=== PATIENT | male | born 1960 | race Caucasian/White ===

== ENCOUNTER → 2020-07-31 06:57 | Outpatient (CLI) | payer MEDICARE, MEDICAID, SELFPAY ==
[2020-07-31 10:44] LABS: Absolute Lymphocyte Count 1.77 X10^3/uL (0.83-4.51); Absolute Neutrophil Count 5.1 X10^3/uL (2.0-7.7); Basophil# 0.05 X10^3/uL; Basophil% 0.6 % (0-1); Eosinophil# 0.22 X10^3/uL; Eosinophils% 2.8 % (0-5); Hematocrit 45.1 % (40-54); Hemoglobin 14.9 g/dL (13.0-16.5); Lymphocyte # 1.77 X10^3/ul (4.0); Lymphocyte % 22.7 % (19-41); Mean Corpuscular Hgb 29.4 pg (27.0-32.0); Mean Platelet Vol. 9.6 fl (6.2-12.0); Monocyte# 0.62 X10^3/uL; Monocyte% 7.9 % (0-10); NRBC Flagged by Analyzer 0 % (0-5); Neutrophil # 5.09 X10^3/uL (2.7-7.7); Neutrophil % 65.4 % (47-70); Platelet Count 332 K/mm3 (150-450); RBC Distribution Width CV 12.6 % (11.6-14.6); RBC Distribution Width SD 40.9 fl (35.1-43.9); Red Blood Count 5.07 M/mm3 (4.6-6.2); White Blood Count 7.8 K/mm3 (4.4-11.0)
[2020-07-31 11:10] LABS: Hemoglobin A1c 10.6 % (3.8-5.6)
[2020-07-31 11:18] LABS: ALB/GLOB Ratio 0.9 RATIO (0.9-2.4); AST(SGOT) 26 U/L (15-37); Alanine Aminotransfer ALT/SGPT 29 U/L (16-61); Albumin, Serum 3.6 g/dL (3.2-5.0); Alkaline Phosphatase 100 U/L (45-117); Anion Gap 6 (5-15); BUN 15 mg/dL (7-18); Calcium,Total 9.3 mg/dL (8.5-10.1); Chloride 100 mmol/L (98-107); Cholesterol 139 mg/dL (200); Creatinine, Serum 0.88 mg/dL (0.70-1.30); EST Glomerular Filtration Rate 94 mL/min (>60); Est Glom Filt Rate - Afr Amer 114 mL/min (>60); Globulin 4.2 g/dL (2.2-4.2); Glucose 266 mg/dL (74-106); High Density Lipoprotein 28 mg/dL; PSA,Total - Annual Screen 0.69 ng/mL (0.00-4.00); Protein, Total 7.8 g/dL (6.4-8.2); Sodium Level 135 mmol/L (136-145); Triglycerides 510 mg/dL
[2020-07-31 11:18] LABS: Microalbumin:Creatinine Ratio 332.1 mg/g CRE (<30 mg/g CRE)
[2020-07-31 11:24] LABS: Amphetamine Urine VISTA NEGATIVE (<1000 ng/mL); Barbiturate Urine VISTA NEGATIVE (< 200 ng/mL); Benzodiazepine Urine VISTA NEGATIVE (< 200 ng/mL); Cocaine Urine VISTA NEGATIVE (< 300 ng/mL); Ecstacy Urine VISTA NEGATIVE (< 500 ng/mL); Methadone Urine VISTA NEGATIVE (< 300 ng/mL); PCP Urine VISTA NEGATIVE (< 25 ng/mL); THC Urine VISTA NEGATIVE (< 50 ng/mL); Vista UDS pH Range 6
== END ==
PROVIDERS: PCP Internal Medicine; Visit Provider Clinical Nurse Specialist
DX: E11.9 Type 2 diabetes mellitus without complications (principal); I10 Essential (primary) hypertension; E78.2 Mixed hyperlipidemia; Z79.899 Other long term (current) drug therapy; Z12.5 Encounter for screening for malignant neoplasm of prostate
CPT/HCPCS: 36415; 80053; 80061; 80307; 82043; 82570; 83036; 84153; 85025; G0103

== ENCOUNTER → 2020-11-20 09:03 | Outpatient (CLI) | payer MEDICARE, MEDICAID, SELFPAY ==
[2020-11-20 11:18] LABS: Hemoglobin A1c 11.2 % (3.8-5.6)
[2020-11-20 11:22] LABS: ALB/GLOB Ratio 0.8 RATIO (0.9-2.4); AST(SGOT) 15 U/L (15-37); Alanine Aminotransfer ALT/SGPT 28 U/L (16-61); Albumin, Serum 3.6 g/dL (3.2-5.0); Alkaline Phosphatase 108 U/L (45-117); Anion Gap 4 (5-15); BUN 10 mg/dL (7-18); BUN/Creat Ratio 10.6 RATIO (10-20); Chloride 99 mmol/L (98-107); Cholesterol 172 mg/dL (200); Creatinine, Serum 0.94 mg/dL (0.70-1.30); EST Glomerular Filtration Rate 87 mL/min (>60); Est Glom Filt Rate - Afr Amer 106 mL/min (>60); Globulin 4.3 g/dL (2.2-4.2); Glucose 258 mg/dL (74-106); High Density Lipoprotein 27 mg/dL; Potassium 3.7 mmol/L (3.5-5.1); Protein, Total 7.9 g/dL (6.4-8.2); Sodium Level 133 mmol/L (136-145); Triglycerides 624 mg/dL
== END ==
PROVIDERS: PCP Internal Medicine; Visit Provider Internal Medicine
DX: E11.65 Type 2 diabetes mellitus with hyperglycemia (principal); Z79.899 Other long term (current) drug therapy
CPT/HCPCS: 36415; 80053; 80061; 83036

== ENCOUNTER → 2020-11-22 12:49 | Outpatient (CLI) | payer MEDICARE, SELFPAY ==
[2014-03-11 08:51] VITALS: BMI 46.3
[2020-11-22 13:42] LABS: Microalbumin,Random Urine 84.3 mg/L (NO RANGE EST.); Microalbumin:Creatinine Ratio 209.7 mg/g CRE (<30 mg/g CRE)
== END ==
PROVIDERS: PCP Internal Medicine; Referring Provider Internal Medicine; Visit Provider Internal Medicine
DX: E11.65 Type 2 diabetes mellitus with hyperglycemia (principal); Z79.899 Other long term (current) drug therapy
CPT/HCPCS: 82043; 82570

== ENCOUNTER 2020-12-09 12:10 | Inpatient (IN) | payer MEDICARE, SELFPAY ==
[2020-12-09] VITALS (14 sets, daily range): BP systolic 101–123; BP diastolic 45–74; PULSE 100–113; RESP 18–20; TEMP 37.2–37.7; O2SAT 91–99; BMI 39.9; BMI 38.5
--- NOTE | 2020-12-09 12:27 | EKG12_ITS ---
Test Reason : ILLNESS Blood Pressure : / mmHG Vent. Rate : 109 BPM Atrial Rate : 110 BPM P-R Int : 148 ms QRS Dur : 134 ms QT Int : 386 ms P-R-T Axes : 049 097 025 degrees QTc Int : 519 ms Sinus tachycardia Rightward axis Non-specific intra-ventricular conduction block Abnormal ECG Confirmed by ELSIE HILL, LIBERTY ([id number]), film editor MIRNA FARR ([id number]) on 12/11/2020 11:10:19 AM Referred By: MADISYN Confirmed By:LIBERTY ZIMMERMAN MD
--- NOTE | 2020-12-09 12:49 | ED.DCSUM_ITS ---
History of Present Illness Chief Complaint: Wound Informant: Patient Onset: Days Context: Sudden Onset Timing: Continuous Quality: Red, warm swollen scrotum with drainage Location: Scrotum and groin Current Severity: Moderate Maximum Severity: Moderate Worsened by: Cellulitis due to tinea infection Relieved by: Nothing Associated Symptoms: Difficulty urinating because of swelling Narrative: Patient is a 60-year-old male with history of diabetes who presents with acute scrotal swelling and difficulty urinating. He denies fever, chills night sweats. He does report blurred vision, polyuria, polydipsia and nocturia. His blood sugars have been elevated. He denies chest discomfort, orthopnea or PND. He denies cough, dyspnea or dyspnea on exertion. He denies abdominal pain, nausea, vomiting diarrhea. He denies black or maroon-colored stool. He denies dysuria or hematuria. He states he does not wish to be admitted. I informed him that we will obtain appropriate tests initiate treatment and if he is a candidate for home therapy will discharge to home otherwise will discuss his options. His concern is that he cares for his mother who lives with him. Prior similar symptoms: No Recent Illness/Hospitalization: No - Past Medical History (1) History of type 2 diabetes mellitus Status: Acute (2) History of hypertension Status: Acute (3) History of hypercholesterolemia Status: Acute Past Medical History - Allergies and Home Meds Allergies/Adverse Reactions: Allergies Penicillins Allergy (Verified 12/09/20 12:18) Anaphylaxis Sulfa (Sulfonamide Antibiotics) Allergy (Verified 12/09/20 12:18) Rash Primary Care Physician: Macrina uMrphy MD [Primary Care Provider] - Prior records reviewed: Yes Surgical History: noncontributory Lives: With Family Smoking Status: Current every day smoker Alcohol: None Drugs: None Review of Systems General: Reports: Malaise. Denies: Chills, Fever, Subjective, Sweats Eyes: Reports: Blurred Vision - bilaterally. Denies: Visual changes - bilaterally, Diplopia ENT: Denies: Rhinorrhea, Sore throat Cardiovascular: Denies: Chest pain, Palpitations Respiratory: Denies: Dyspnea, Cough, Sputum, Dyspnea on exertion, Orthopnea, Paroxysmal nocturnal dyspnea Gastrointestinal: Denies: Abdominal pain, Nausea, Vomiting, Diarrhea, Melena, Hematochezia Genitourinary: Denies: Dysuria, Hematuria, Frequency Musculoskeletal: Denies: Myalgias, Arthralgias, Neck pain, Back pain, Swelling, Extremity Pain Skin: Reports: Rash, Wounds Neurological: Reports: Weakness. Denies: Headache, Parasthesia Endocrine: Reports: Polyuria, Polydipsia Hematologic: Denies: Easy bruising, Easy bleeding Physical Exam Vital Signs/Narrative: Vital Signs Temp Pulse Resp BP Pulse Ox 12/09/20 12:46 112 H 18 102/70 96 12/09/20 12:16 99.9 F H 108 H 20 H 101/67 96 12/09/20 12:14 99.9 F H 106 H 20 H 98 Inital Vital Signs reviewed: Yes General: Well nourished, Well developed, Obese, Unkempt, No Acute Distress Head: Normocephalic, Atraumatic Eyes: Perrl, EOMI, Pale conjunctiva - Conjunctival is slightly pale minimally pink. Negative for: Scleral icterus ENT: No rhinorrhea, TM's clear, Dry mucous membranes Neck: Supple, No lymphadenopathy, No JVD Cardiovascular: Regular rhythm, No murmurs, Normal S1, Normal S2, Tachycardia Respiratory: No distress, CTA bilaterally, Chest nontender Abdomen: Soft, Nontender, Nondistended, Normal bowel sounds Rectal: Deferred : - - Unable to visualize penis because of excessive scrotal swelling due to cellulitis. There are small pustules noted on the posterior side of the scrotum. There is evidence of a yeast infection. There is shotty inguinal nodes noted. Back: Nontender, Normal Inspection Extremities: Nontender, Edema. Negative for: No edema Skin: No Trauma, Pallor, Rash. Negative for: Normal color, No rash, Cyanosis, Diaphoresis, Jaundice Neurological: Alert, Oriented x3, Cranial nerves II-XII grossly intact, Normal Strength, Normal Sensation Psychological: Normal affect Diagnostic/Tx/Re-eval Laboratory Results 12/09/20 12/09/20 12/09/20 12:35 12:35 12:35 WBC 15.0 H RBC 4.66 Hgb 13.3 Hct 40.2 MCV 86.3 MCH 28.5 MCHC 33.1 RDW Std Deviation 40.2 RDW Coeff of Kyle 12.9 Plt Count 378 MPV 9.5 Immature Gran % (Auto) 1.500 H Neut % (Auto) 87.5 H Lymph % (Auto) 4.4 L [place] % (Auto) 6.0 Eos % (Auto) 0.1 Baso % (Auto) 0.5 Absolute Neuts (auto) 13.2 H Absolute Lymphs (auto) 0.66 L Nucleated RBC % 0 PT 14.3 INR 1.2 APTT 24.2 Sodium 127 L Potassium 3.2 L Chloride 89 L Carbon Dioxide 27.0 Anion Gap 11 BUN 19 H Creatinine 1.07 Estim Creat Clear Calc 75.25 Est GFR (MDRD) Af Amer 91 Est GFR (MDRD) Non-Af 75 BUN/Creatinine Ratio 17.8 Glucose 301 H Lactic Acid Calcium 9.4 Total Bilirubin 0.70 AST 53 H ALT 32 Alkaline Phosphatase 130 H Total Protein 7.9 Albumin 2.4 L Globulin 5.5 H Albumin/Globulin Ratio 0.4 L 12/09/20 12/09/20 12:35 12:35 WBC RBC Hgb Hct MCV MCH MCHC RDW Std Deviation RDW Coeff of Kyle Plt Count MPV Immature Gran % (Auto) Neut % (Auto) Lymph % (Auto) [place] % (Auto) Eos % (Auto) Baso % (Auto) Absolute Neuts (auto) Absolute Lymphs (auto) Nucleated RBC % PT INR APTT Sodium Potassium Chloride Carbon Dioxide Anion Gap BUN Creatinine Estim Creat Clear Calc Est GFR (MDRD) Af Amer Est GFR (MDRD) Non-Af BUN/Creatinine Ratio Glucose Lactic Acid Cancelled 2.2 H* Calcium Total Bilirubin AST ALT Alkaline Phosphatase Total Protein Albumin Globulin Albumin/Globulin Ratio Patient's lab indicate he has severe sepsis due to cellulitis of his scrotum. Hospitalist has been paged for admission. - EKG Initial EKG Interpretation: Sinus Tachycardia - Sinus tachycardia with a ventricular rate of 109. NE interval is 148 ms. QRS duration is prolonged at 134 ms and QRS reveals a nonspecific intraventricular conduction delay. The axis to the right. NE interval is 386 ms. - Medical Decision Making Has cellulitis due to tinea infection. Suspect this is due to his elevated bl ood sugar. Sepsis work-up was undertaken. He was treated with IV antibiotics. - Critical Care Time Critical care time (excluding procedures): 30-74 minutes - Time 34 minutes. This includes obtaining history, physical, discussion regarding necessity for hospitalization, interpretation of lab results, initiation of therapy,, Discussing w/Patient &/or Family/Nursing Home Physician, Discussing w/Consultants, Arranging Admission or Transfer ED Disposition - Plan for ED Patient: Disposition: Acute Care Hospital [facility] Diagnosis: Severe sepsis, Cellulitis of scrotum, Sinus tachycardia by electrocardiogram, Hyponatremia, Hypokalemia, Hyperglycemia due to type 2 diabetes mellitus Referrals: Macrina Murphy MD [Primary Care Provider] -
[2020-12-09 13:02] LABS: Absolute Lymphocyte Count 0.66 X10^3/uL (0.83-4.51); Absolute Neutrophil Count 13.2 X10^3/uL (2.0-7.7); Basophil# 0.07 X10^3/uL; Basophil% 0.5 % (0-1); Eosinophil# 0.01 X10^3/uL; Eosinophils% 0.1 % (0-5); Hematocrit 40.2 % (40-54); Hemoglobin 13.3 g/dL (13.0-16.5); Lymphocyte # 0.66 X10^3/ul (4.0); Lymphocyte % 4.4 % (19-41); Mean Corp Hgb Conc 33.1 g/dL (32-36); Mean Corpuscular Hgb 28.5 pg (27.0-32.0); Mean Corpuscular Volume 86.3 fL (80-94); Mean Platelet Vol. 9.5 fl (6.2-12.0); NRBC Flagged by Analyzer 0 % (0-5); Neutrophil # 13.16 X10^3/uL (2.7-7.7); Neutrophil % 87.5 % (47-70); Platelet Count 378 K/mm3 (150-450); RBC Distribution Width CV 12.9 % (11.6-14.6); RBC Distribution Width SD 40.2 fl (35.1-43.9); Red Blood Count 4.66 M/mm3 (4.6-6.2)
[2020-12-09] MEDS: levoFLOXacin IV 750 MG/150 ML BAG 100 MG IV (13:05)
[2020-12-09] MEDS: 0.9% Normal Saline 1,000 ML 250 ML IV ×2 (13:05→22:17)
[2020-12-09 13:13] LABS: International Normalized Ratio 1.2; Prothrombin Time (Protime)PT. 14.3 SECONDS (11.7-14.9)
[2020-12-09 13:14] LABS: Partial Thromboplast Time 24.2 Seconds (24.1-36.2)
[2020-12-09 13:27] LABS: ALB/GLOB Ratio 0.4 RATIO (0.9-2.4); AST(SGOT) 53 U/L (15-37); Alanine Aminotransfer ALT/SGPT 32 U/L (16-61); Albumin, Serum 2.4 g/dL (3.2-5.0); Alkaline Phosphatase 130 U/L (45-117); Anion Gap 11 (5-15); BUN 19 mg/dL (7-18); BUN/Creat Ratio 17.8 RATIO (10-20); Calcium,Total 9.4 mg/dL (8.5-10.1); Chloride 89 mmol/L (98-107); Creatinine, Serum 1.07 mg/dL (0.70-1.30); EST Glomerular Filtration Rate 75 mL/min (>60); Est Glom Filt Rate - Afr Amer 91 mL/min (>60); Estimated Creatinine Clearance 75.25 ml/min; Globulin 5.5 g/dL (2.2-4.2); Glucose 301 mg/dL (74-106); Potassium 3.2 mmol/L (3.5-5.1); Protein, Total 7.9 g/dL (6.4-8.2); Sodium Level 127 mmol/L (136-145)
[2020-12-09 13:45] LABS: Lactic Acid 2.2 mmol/L (0.4-1.9)
--- NOTE | 2020-12-09 14:59 | HP.PCM_ITS ---
Problem List (1) Cellulitis of scrotum Status: Acute (2) Severe sepsis Status: Acute (3) Hyponatremia Status: Acute (4) History of hypercholesterolemia Status: Chronic (5) History of hypertension Status: Chronic (6) History of type 2 diabetes mellitus Status: Chronic History of Present Illness Date of Admission: 12/09/20 Chief Complaint: scrotal swelling The patient is a 60 year old M with pmhx of Dmt2, HTN, HLD, obesity, nicotine abuse (1/2 ppd smoker) who presents to the ER with scrotal swelling. He states this started 2 days ago and that he had no issues prior to that. He reports his scrotum has swollen to the size of a grapefruit. He has some pain, and a great deal of redness. He denies fevers or chills. He has no cough/sob, no nausea/vomiting/abdominal pain. He reports that he has never had a skin infection before. He reports that he has had no trauma to the area. He reports that the redness and swelling only involves the scrotum and not anywhere else. He has not been on any antibiotics as an outpatient. In the ER he was found to have evidence of sepsis and significant swelling to the scrotum. [] Past Medical History Past Medical History (Chronic Problems): Chronic Problems History of type 2 diabetes mellitus (Chronic) History of hypertension (Chronic) History of hypercholesterolemia (Chronic) Allergies Penicillins Allergy (Verified 12/09/20 12:18) Anaphylaxis Sulfa (Sulfonamide Antibiotics) Allergy (Verified 12/09/20 12:18) Rash Home Medications: Ambulatory Orders Medication Instructions Recorded Dulaglutide [Trulicity] 0.75 mg SQ QWEEK 12/09/20 Hydrocodone/Acetaminophen 1 tab PO QHS 12/09/20 [Hydrocodone-Acetamin 5-325 mg] Ibuprofen 600 mg PO DAILY PRN PRN 12/09/20 Lisinopril [Prinivil] 10 mg PO DAILY 12/09/20 Meloxicam [Mobic] 15 mg PO DAILY 12/09/20 Metformin HCl 2,000 mg PO DAILY 12/09/20 Simvastatin 40 mg PO QHS 12/09/20 Surgical History: tonsillectomy Psychiatric History: Depression Lives: With Family Smoking Status: Current every day smoker Tobacco Use: Cigarettes - 1/2 ppd Alcohol: None Drugs: None - *Family History Maternal History Items: Cancer - lung Paternal History Items: Cancer - lung and kidney Review of Systems Constitutional: Denies: Chills, Fever, Weight Change HEENT: Denies: Head Aches, Sinus Congestion, Sinus Drainage Cardiovascular: Denies: Chest Pain, Chest Pressure, Chest Tightness, Light Headedness, Palpitations Respiratory: Denies: Cough, Shortness of Breath, Shortness of breath at rest, Sputum production Gastrointestinal: Denies: Abdominal Pain, Diarrhea, Nausea, Vomiting Genitourinary: Denies: Dysuria, Hesitancy, Urgency Musculoskeletal: Reports: Joint Tenderness - shoulder, hip, knee pain. Denies: Joint Pain, Muscle pain Skin: Reports: Skin Changes - scrotal edema, erythema, pain. Denies: Lesions, Rash, Wounds Neurological: Denies: Numbness, Tingling, Focal weakness Psychiatric: Denies: Anxiety, Depression, Homicidal Ideations, Suicidal Ideations Hematologic/ Lymphatic: Denies: Easy Bruising, Easy Bleeding VTE Information - Inpt Only VTE Present on Admission: No VTE Mechan Device Prophylaxis: None VTE Pharm Prophylaxis ordered?: Yes Patient Problems: Active and Suspected Problems Severe sepsis (Acute) Cellulitis of scrotum (Acute) Sinus tachycardia by electrocardiogram (Acute) Hyponatremia (Acute) Hypokalemia (Acute) Hyperglycemia due to type 2 diabetes mellitus (Acute) - Physical Exam Vitals/I&O's: Vital Signs Temp Pulse Resp BP Pulse Ox 99 F 113 H 18 117/73 99 12/09/20 14:46 12/09/20 14:46 12/09/20 14:46 12/09/20 14:46 12/09/20 14:46 Oxygen Delivery Method Room Air Weight: 270 lb 8.115 oz Body Mass Index (BMI) 39.9 Finger Stick Blood Glucose 115 Intake and Output for Last 24 Hours 12/07/20 12/08/20 12/09/20 23:59 23:59 23:59 Intake Total 150 / 150 Balance 150 / 150 General: Alert, Oriented x3, Cooperative HEENT: Atraumatic, PERRLA, EOMI, Normocephalic Neck: Supple, No JVD, Negative Carotid Bruits Lungs: Clear to auscultation, Normal air movement Cardiovascular: Regular rate, No murmurs Abdomen: Bowel Sounds Present, Soft, Non Tender, Obese Extremities: No edema, Capillary Refill Less than 3 Seconds Skin: No rashes, No breakdown, - - scrotum is swollen, erythematous, painful to touch. the inguinal folds have erythema c/w yeast infection Musculoskeletal: No Tenderness to Palpation of Joints or Extremities Neurological: Cranial nerves II-XII grossly intact Psych/Mental Status: Normal Affect, Appropriate, Alert and oriented to time, place, person, mood and affect Laboratory Results 12/09/20 12:35: PT 14.3, INR 1.2, APTT 24.2 12/09/20 12:35: WBC 15.0 H, RBC 4.66, Hgb 13.3, Hct 40.2, MCV 86.3, MCH 28.5, MCHC 33.1, RDW Std Deviation 40.2, RDW Coeff of Kyle 12.9, Plt Count 378, MPV 9.5, Immature Gran % (Auto) 1.500 H, Neut % (Auto) 87.5 H, Lymph % (Auto) 4.4 L, [place] % (Auto) 6.0, Eos % (Auto) 0.1, Baso % (Auto) 0.5, Absolute Neuts (auto) 13.2 H, Absolute Lymphs (auto) 0.66 L, Nucleated RBC % 0 12/09/20 12:35: Sodium 127 L, Potassium 3.2 L, Chloride 89 L, Carbon Dioxide 27.0, Anion Gap 11, BUN 19 H, Creatinine 1.07, Estim Creat Clear Calc 75.25, Est GFR (MDRD) Af Amer 91, Est GFR (MDRD) Non-Af 75, BUN/Creatinine Ratio 17.8, Glucose 301 H, Calcium 9.4, Total Bilirubin 0.70, AST 53 H, ALT 32, Alkaline Phosphatase 130 H, Total Protein 7.9, Albumin 2.4 L, Globulin 5.5 H, Albumin/Globulin Ratio 0.4 L 12/09/20 12:35: Lactic Acid Cancelled 12/09/20 12:35: Lactic Acid 2.2 H* Current Medications Sodium Chloride () 1,000 mls @ 250 mls/hr IV .Q4H KIRTI Last Admin: 12/09/20 13:05 Dose: 250 mls/hr Documented by: Vancomycin HCl 2,000 mg/ (Sodium Chloride) 540 mls @ 250 mls/hr IV X1 ONE Stop: 12/09/20 15:09 Assessment/Plan All Active Problems Severe sepsis (Acute) Cellulitis of scrotum (Acute) Sinus tachycardia by electrocardiogram (Acute) Hyponatremia (Acute) Hypokalemia (Acute) Hyperglycemia due to type 2 diabetes mellitus (Acute) 1. Acute severe sepsis 2/2 acute cellulitis of the scrotum - this appears well localized at this time with no evidence of spread to the surrounding tissues. At this point I am not concern that there is necrotizing fascitis. No open areas or drainage. He has mild pain to the touch worse with moving of the scrotum. He has evidence of severe sepsis including leukocytosis, latate 2.2, pulse >90. Left shift present. Pcn has anaphylaxis to PCN. He was started on vanco and l evaquin in the ER. Will treat meropenem and vancomycin 2. Hyponatremia - probably a combination of factors including sepsis, elevated glucose. Pt will be placed on normal saline. Recheck in AM. Replace K+. 2. DMt2 - poorly controlled. pt says his last a1c was 11.2. Orals will be held and he will be placed on SSI 3. HTN - stable 4. HLD - statin 5. Nicotine abuse - 1/2 ppd smoker. declines patch at this time. This will complicate his wound healing process. DVT ppx: lovenox DC planning: pt lives alone independently with mother whom he cares for. Likely will go home with no needs. This patient was seen by Mario Kendrick PA-C under the supervision of Dr. Agudelo.
--- NOTE | 2020-12-09 16:04 | PCM.RX.CS ---
<Yan Ojeda - Last Filed: 12/09/20 16:04> Consult Pharmacy has been consulted to manage selected antiobiotic: Vancomycin Type of Consult: New start Prior Doses of Antibiotics Received/Current Regimen: Medications Discontinued Medications Vancomycin HCl 2,000 mg/ (Sodium Chloride) 540 mls @ 250 mls/hr IV X1 ONE Stop: 12/09/20 15:09 Last Admin: 12/09/20 15:07 Dose: 250 mls/hr Documented by: Labs: Sodium 127 mmol/L (136-145) L 12/09/20 12:35 Potassium 3.2 mmol/L (3.5-5.1) L 12/09/20 12:35 Chloride 89 mmol/L (98-107) L 12/09/20 12:35 Carbon Dioxide 27.0 mmol/L (21.0-32.0) 12/09/20 12:35 Anion Gap 11 (5-15) 12/09/20 12:35 BUN 19 mg/dL (7-18) H 12/09/20 12:35 Creatinine 1.07 mg/dL (0.70-1.30) 12/09/20 12:35 Est GFR (MDRD) Af Amer 91 mL/min (>60) 12/09/20 12:35 Est GFR (MDRD) Non-Af 75 mL/min (>60) 12/09/20 12:35 BUN/Creatinine Ratio 17.8 RATIO (10-20) 12/09/20 12:35 Glucose 301 mg/dL (74-106) H 12/09/20 12:35 Weight used for dosin lb 2.327 oz Estimated Creatinine Clearance: 75 mL/min Goal Trough: 15-20 mcg/mL Pharmacy Plan for Drug Dosinmg given in ED, 1750mg IV q12h with trough prior to 4th dose per policy. Pharmacy Service will continue to monitor and adjust dosing as required. Follow-Up Labs: Trough Vancomycin - 12/11 @ 0230 <Norberto Edmonds - Last Filed: 12/10/20 14:48> Consult Labs: Sodium 130 mmol/L (136-145) L 12/10/20 09:30 Potassium 3.3 mmol/L (3.5-5.1) L 12/10/20 09:30 Chloride 96 mmol/L (98-107) L 12/10/20 09:30 Carbon Dioxide 27.0 mmol/L (21.0-32.0) 12/10/20 09:30 Anion Gap 7 (5-15) 12/10/20 09:30 BUN 13 mg/dL (7-18) 12/10/20 09:30 Creatinine 0.84 mg/dL (0.70-1.30) 12/10/20 09:30 Est GFR (MDRD) Af Amer 121 mL/min (>60) 12/10/20 09:30 Est GFR (MDRD) Non-Af 100 mL/min (>60) 12/10/20 09:30 BUN/Creatinine Ratio 15.6 RATIO (10-20) 12/10/20 09:30 Glucose 233 mg/dL (74-106) H 12/10/20 09:30 Pharmacy Plan for Drug Dosing: Pharmacy Service will continue to monitor and adjust dosing as required.
[2020-12-09] MEDS: oxyCODONE 5 MG Tablet 10 MG PO (16:08)
[2020-12-09 16:11] LABS: Bedside Glucose 284 mg/dL (70-110)
[2020-12-09] MEDS: Insulin Lispro 100 UNIT/ML INSULN.PEN SC ×2 (16:32→22:40)
[2020-12-09 17:44] LABS: Reflex Lactate? Y
[2020-12-09 18:43] LABS: Lactic Acid 1.6 mmol/L (0.4-1.9)
[2020-12-09 22:05] LABS: Bedside Glucose 257 mg/dL (70-110)
[2020-12-09] MEDS: Atorvastatin Calcium 20 MG Tablet PO (22:22)
[2020-12-09] MEDS: HYDROcodone Bitartrate/Apap 5/325 Tablet PO (22:22)
[2020-12-09] MEDS: Heparin Injection (Vial) 5,000 UNIT/ML VIAL 5000 UNIT SC (22:24)
[2020-12-09] MEDS: Nystatin Ointment 1 APPLIC TOPICAL (22:42)
[2020-12-10 00:50] VITALS: BP 114/63; PULSE 92; RESP 20; TEMP 36.8; O2SAT 92
[2020-12-10] MEDS: 0.9% Normal Saline 1,000 ML 250 ML IV ×3 (01:59→08:11)
[2020-12-10 03:29] VITALS: PULSE 88
[2020-12-10 06:16] VITALS: BP 115/59; PULSE 87; RESP 18; TEMP 36.7; O2SAT 92
[2020-12-10 07:00] VITALS: PULSE 85
[2020-12-10 07:35] LABS: Bedside Glucose 274 mg/dL (70-110)
[2020-12-10 08:04] VITALS: BP 112/55; PULSE 89; RESP 18; TEMP 36.4; O2SAT 94
[2020-12-10] MEDS: Insulin Lispro 100 UNIT/ML INSULN.PEN SC (08:08)
[2020-12-10] MEDS: metFORMIN HCl 500 MG Tablet 2000 MG PO (08:12)
[2020-12-10] MEDS: Meloxicam 15 MG Tablet PO (08:13)
[2020-12-10] MEDS: Lisinopril 10 MG Tablet PO (08:13)
[2020-12-10] MEDS: Heparin Injection (Vial) 5,000 UNIT/ML VIAL 5000 UNIT SC (08:13)
[2020-12-10] MEDS: Nystatin Ointment 1 APPLIC TOPICAL (08:13)
--- NOTE | 2020-12-10 09:50 | CT_ITS ---
We are attempting to reach an attending provider to discuss findings. An addendum with communication details will be sent when the communication is complete. STUDY: CT PELVIS WITHOUT CONTRAST REASON FOR EXAM: Male, 60 years old. SCROTAL EDEMA X 3 DAYS. SEPSIS RADIATION DOSAGE (If Supplied By Facility): CTDIvol = ( 28.21 ) mGy, DLP = ( 1561.03 ) mGycm TECHNIQUE: Transaxial imaging of the pelvis was performed with oral contrast, and without intravenous administration of contrast material. Individualized dose optimization techniques were used for this CT. COMPARISON: None. FINDINGS: There is evidence of diffuse subcutaneous edema with evidence of gas within the soft tissues from the level of the right groin down to the perineum worse on the right side. This is in keeping with a MARILUZ gangrene. There is also evidence of bilateral hydroceles. Diffuse thickening of the scrotal wall. Distended urinary bladder. Central prostatic calcification. There is evidence of a bilateral enlarged inguinal lymph nodes more prominent on the right side. 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 Electronically Signed: Raleigh Alatorre MD at 10:31 EST , Service support ,
[2020-12-10 10:01] LABS: Hematocrit 34.2 % (40-54); Hemoglobin 11.2 g/dL (13.0-16.5); Mean Corp Hgb Conc 32.7 g/dL (32-36); Mean Corpuscular Hgb 28.4 pg (27.0-32.0); Mean Corpuscular Volume 86.6 fL (80-94); Mean Platelet Vol. 8.9 fl (6.2-12.0); POSITIVE COUNT YES; POSITIVE MORPHOLOGY YES; Platelet Count 333 K/mm3 (150-450); RBC Distribution Width SD 41.1 fl (35.1-43.9); Red Blood Count 3.95 M/mm3 (4.6-6.2); White Blood Count 13.3 K/mm3 (4.4-11.0)
[2020-12-10 10:04] LABS: Differential Indicated MANUAL DIFF
--- NOTE | 2020-12-10 10:45 | CASEMGMT ---
According to the [facility] website, the following are in-network tertiary facilities: [facility], [facility], [facility], [facility], [facility], [facility], [facility], and . Jelani COLON CM
[2020-12-10 10:49] LABS: Anion Gap 7 (5-15); BUN 13 mg/dL (7-18); BUN/Creat Ratio 15.6 RATIO (10-20); Calcium,Total 7.7 mg/dL (8.5-10.1); Chloride 96 mmol/L (98-107); Creatinine, Serum 0.84 mg/dL (0.70-1.30); EST Glomerular Filtration Rate 100 mL/min (>60); Est Glom Filt Rate - Afr Amer 121 mL/min (>60); Estimated Creatinine Clearance 95.86 ml/min; Glucose 233 mg/dL (74-106); Potassium 3.3 mmol/L (3.5-5.1); Sodium Level 130 mmol/L (136-145)
[2020-12-10 10:55] LABS: Metamyelocyte 1 % (0-1); Myelocyte 1 (0-0); Neutrophil-Segmented 80 % (47-70); Total Cells Counted 100 (MANUAL DIFF)
[2020-12-10 10:56] LABS: Eosinophil 3 % (0-5); Lymphocyte 12 % (19-41); Monocyte 2 % (0-10); Platelet Estimate ADEQUATE (ADEQ); Promyelocyte 1 (0-0); Red Cell Morphology NORM C+C NORMAL (NORM C&C)
[2020-12-10 10:57] LABS: Absolute Neutrophil Count 10.6 X10^3/uL (2.0-7.7)
--- NOTE | 2020-12-10 14:00 | PCM.DC.SUM ---
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 Operations: None Procedures: None Summary of Care Provided: Hospital Course: The patient is a 60 year old M with pmhx of DM t2 last a1c reportedly 11.2, also HTN, HLD, who presented to the ER with scrotal swelling. This began two days prior. He was found to be septic with elevated lactate, leukocytosis, pulse >90, temp 99.9. His scrotum was erythematous and swollen with tenderness to palpations, no open areas or drainage. At the time it appeared well localized, he was given IV vanc and meropenem and admitted for cellulitis. He had no improvement overnight. Infectious disease was consulted. CT pelvis was obtained and this showed changes consistent with Fourniers Gangrene, significant gas present in the scrotum extending into the perineum and bilateral hydroceles. IV clindamycin was started. We made immediate referral for transfer to a tertiary center. He was accepted by a surgeon, Dr. Montilla at [facility] and was transferred in stable condition. This patient was seen by Mario Kendrick PA-C under the supervision of Dr. Edmonds. [] Patient Problems: Active and Suspected Problems Severe sepsis (Acute) Cellulitis of scrotum (Acute) Sinus tachycardia by electrocardiogram (Acute) Hyponatremia (Acute) Hypokalemia (Acute) Hyperglycemia due to type 2 diabetes mellitus (Acute) - Physical Exam Vitals/I&O's: Vital Signs Temp Pulse Resp BP Pulse Ox 97.6 F L 89 18 112/55 L 94 12/10/20 08:04 12/10/20 08:04 12/10/20 08:04 12/10/20 08:04 12/10/20 08:04 Oxygen Delivery Method Room Air Weight: 261 lb 0.437 oz Body Mass Index (BMI) 38.5 Finger Stick Blood Glucose 115 Intake and Output for Last 24 Hours 12/08/20 12/09/20 12/10/20 23:59 23:59 23:59 Intake Total 2170.0 / 2170.0 4725.43 / 4725.43 Balance 2170.0 / 2170.0 4725.43 / 4725.43 General: Alert, Oriented x3, Cooperative HEENT: Atraumatic, PERRLA, EOMI, Normocephalic Neck: Supple, No JVD, Negative Carotid Bruits Lungs: Clear to auscultation, Normal air movement Cardiovascular: Regular rate, No murmurs Abdomen: Bowel Sounds Present, Soft, Non Tender Extremities: No edema, Capillary Refill Less than 3 Seconds Skin: No rashes, No breakdown Musculoskeletal: No Tenderness to Palpation of Joints or Extremities Neurological: Cranial nerves II-XII grossly intact Psych/Mental Status: Normal Affect, Appropriate, Alert and oriented to time, place, person, mood and affect Laboratory Results 12/09/20 16:04: POC Glucose 284 H 12/09/20 18:03: Lactic Acid 1.6 12/09/20 22:02: POC Glucose 257 H 12/10/20 07:30: POC Glucose 274 H 12/10/20 09:30: WBC 13.3 H, RBC 3.95 L, Hgb 11.2 L, Hct 34.2 L, MCV 86.6, MCH 28.4, MCHC 32.7, RDW Std Deviation 41.1, RDW Coeff of Kyle 13.0, Plt Count 333, MPV 8.9, Neut % (Auto) Not Reportable, Absolute Neuts (auto) 10.6 H, Absolute Lymphs (auto) 1.60, Total Counted 100, Neutrophils % (Manual) 80 H, Lymphocytes % (Manual) 12 L, Monocytes % (Manual) 2, Eosinophils % (Manual) 3, Metamyelocytes % 1, Myelocytes % 1 H, Promyelocytes % 1 H, Diff Path Review May foll, Platelet Estimate ADEQUATE, RBC Morphology NORM C+C 12/10/20 09:30: Sodium 130 L, Potassium 3.3 L, Chloride 96 L, Carbon Dioxide 27.0, Anion Gap 7, BUN 13, Creatinine 0.84, Estim Creat Clear Calc 95.86, Est GFR (MDRD) Af Amer 121, Est GFR (MDRD) Non-Af 100, BUN/Creatinine Ratio 15.6, Glucose 233 H, Calcium 7.7 L Home Medications: Medications to take at Discharge Dulaglutide [Trulicity] 0.75 mg SQ QWEEK 12/09/20 Hydrocodone/Acetaminophen [Hydrocodone-Acetamin 5-325 mg] 1 tab PO QHS 12/09/20 Ibuprofen 600 mg PO DAILY PRN PRN 12/09/20 Lisinopril [Prinivil] 10 mg PO DAILY 12/09/20 Meloxicam [Mobic] 15 mg PO DAILY 12/09/20 Metformin HCl 2,000 mg PO DAILY 12/09/20 Simvastatin 40 mg PO QHS 12/09/20 Primary Care Physician: Macrina Murphy MD [Primary Care Provider] - Disposition: Acute care Hospital Minutes spent on discharge:: 40 Patient Condition:: Stable Medical Necessity - Tobacco Use Smoking Status: Current every day smoker Tobacco Use: Cigarettes Meaningful Use Info Meaningful Use Diagnoses (Choose all that apply): None applicable <Norberto Edmonds - Last Filed: 12/10/20 15:03> Discharge Date and Diagnosis - Primary Discharge Diagnosis Acute Problems: Active Problems Severe sepsis (Acute) Cellulitis of scrotum (Acute) Sinus tachycardia by electrocardiogram (Acute) Hyponatremia (Acute) Hypokalemia (Acute) Hyperglycemia due to type 2 diabetes mellitus (Acute) - Secondary Discharge Diagnosis Chronic Problems: Chronic Problems History of type 2 diabetes mellitus (Chronic) History of hypertension (Chronic) History of hypercholesterolemia (Chronic) Hospital Course and Treatment Imaging Results: 12/10/20 09:50 CT Pel [Pelvis without IV Contrast] [CT] Stat Summary of Care Provided: This patient was seen in conjunction with Mario TUCKRE. I have independently interviewed and examined the patient and reviewed pertinent history, examination findings, laboratory and plan of management. I have reviewed the note and agree with the documented findings with the few additional points. In brief, patient is admitted for with history of type 2 diabetes mellitus was admitted with scrotal swelling. Pain, swelling started about 3 days ago on weekend, past Wednesday. Lactic acid was 2.2 with leukocytosis with left shift neutrophil 87.5%. Patient also hyponatremic, hypokalemic. Glucose was 301. Patient was admitted in PCU. I saw the patient along with ID Dr. Belle and on exam seems deep tissue infection?necrotizing fasciitis. CT pelvis was done. CT pelvis individually reviewed and shows gas in the scrotal region involving the right inguinal region extending down to the right perineum with the scrotal thickening and bilateral hydroceles. Patient was given IV clindamycin along with vancomycin. Patient was immediately transferred to [facility]. Accepting surgeon Dr. Montilla at [facility] I have discussed my assessment with Mario TUCKER and orders have been reviewed. Total time of the visit including total time spent in counseling or coordination of care, (more than 50% of the total time, spent in obtaining medical information from nurses and other ancillary care providers,explaining to the patient about labs, imaging, diagnosis and management), discussion with senior information security consultant, review of labs and imaging, discussion with bereavement coordinator is 30 minutes. [] Clinical Impression(s) from Imaging Studies Pelvis CT 12/10/20 09:50 IMPRESSION: Findings in keeping with MARILUZ''s gangrene involving the right inguinal region extending down into the right perineum with scrotal thickening and bilateral hydroceles. Objective: Seen and examined Patient had low-grade fever 99.9 Fahrenheit yesterday. . Blood pressure normal. Heart rate in the 80s. Patient complained of severe pain on the scrotal region. Physical exam General: Alert, Oriented x3, Cooperative HEENT: Atraumatic, PERRLA, EOMI, Normocephalic Oral: No Gingival or Mucosal Lesions/ Ulcerations Neck: Supple, No JVD, Negative Carotid Bruits Lungs: Air entry diminished in bilateral lung bases. No crepitation/rhonchi Cardiovascular: Regular rate, Regular Rhythm, Normal S1, Normal S2, No murmurs Abdomen: Bowel Sounds Present, Soft, Non Tender, Non-Distended : Exquisite tenderness present over whole the scrotum. Yellowish material/purulence noticed under the skin. Mild relief from lifting the scrotum. No renal angle or suprapubic tenderness. Extremities: No edema, Capillary Refill Less than 3 Seconds Skin: No rashes, No breakdown Musculoskeletal: No Tenderness to Palpation of Joints or Extremities Neurological: Cranial nerves II-XII grossly intact, Deep Tendon Reflexes 2+/4 and Symmetrical, Neuro grossly intact Psych/Mental Status: Normal Affect, Appropriate. - Physical Exam Vitals/I&O's: Vital Signs Temp Pulse Resp BP Pulse Ox 97.6 F L 89 18 112/55 L 94 12/10/20 08:04 12/10/20 08:04 12/10/20 08:04 12/10/20 08:04 12/10/20 08:04 Oxygen Delivery Method Room Air Weight: 261 lb 0.437 oz Body Mass Index (BMI) 38.5 Finger Stick Blood Glucose 115 Intake and Output for Last 24 Hours 12/08/20 12/09/20 12/10/20 23:59 23:59 23:59 Intake Total 2170.0 / 2170.0 4725.43 / 4725.43 Balance 2170.0 / 2170.0 4725.43 / 4725.43 Laboratory Results 12/09/20 16:04: POC Glucose 284 H 12/09/20 18:03: Lactic Acid 1.6 12/09/20 22:02: POC Glucose 257 H 12/10/20 07:30: POC Glucose 274 H 12/10/20 09:30: WBC 13.3 H, RBC 3.95 L, Hgb 11.2 L, Hct 34.2 L, MCV 86.6, MCH 28.4, MCHC 32.7, RDW Std Deviation 41.1, RDW Coeff of Kyle 13.0, Plt Count 333, MPV 8.9, Neut % (Auto) Not Reportable, Absolute Neuts (auto) 10.6 H, Absolute Lymphs (auto) 1.60, Total Counted 100, Neutrophils % (Manual) 80 H, Lymphocytes % (Manual) 12 L, Monocytes % (Manual) 2, Eosinophils % (Manual) 3, Metamyelocytes % 1, Myelocytes % 1 H, Promyelocytes % 1 H, Diff Path Review May , Platelet Estimate ADEQUATE, RBC Morphology NORM C+C 12/10/20 09:30: Sodium 130 L, Potassium 3.3 L, Chloride 96 L, Carbon Dioxide 27.0, Anion Gap 7, BUN 13, Creatinine 0.84, Estim Creat Clear Calc 95.86, Est GFR (MDRD) Af Amer 121, Est GFR (MDRD) Non-Af 100, BUN/Creatinine Ratio 15.6, Glucose 233 H, Calcium 7.7 L Inpatient E&M: [id number] Disch Hosp
--- NOTE | 2020-12-10 14:35 | PCM.HP.ID ---
Problem List (1) Cellulitis of scrotum Status: Acute Reason for Consult: scrotal cellulitis Consulted by: Dr. Edmonds History of Present Illness: The patient is a 60 year old M with uncontrolled DM, presented with 2-3 days of progressive scrotal pain, redness, and swelling. No fever or chills, no inciting event. No drainage. No h/o urologic procedures. No h/o MRSA infection. Mild difficulty with urinating now. Came to ED, elevated lactate, feeling a little better this AM, on vanc/alondra. Reports anaphylaxis with PCN, has not taken other beta lactams. Full ROS performed and neg except as noted above. - Medical History Past Medical History (Chronic Problems): Chronic Problems History of type 2 diabetes mellitus (Chronic) History of hypertension (Chronic) History of hypercholesterolemia (Chronic) Allergies/Adverse Reactions: Allergies Penicillins Allergy (Verified 12/09/20 12:18) Anaphylaxis Sulfa (Sulfonamide Antibiotics) Allergy (Verified 12/09/20 12:18) Rash Home Medications: Ambulatory Orders Medication Instructions Recorded Dulaglutide [Trulicity] 0.75 mg SQ QWEEK 12/09/20 Hydrocodone/Acetaminophen 1 tab PO QHS 12/09/20 [Hydrocodone-Acetamin 5-325 mg] Ibuprofen 600 mg PO DAILY PRN PRN 12/09/20 Lisinopril [Prinivil] 10 mg PO DAILY 12/09/20 Meloxicam [Mobic] 15 mg PO DAILY 12/09/20 Metformin HCl 2,000 mg PO DAILY 12/09/20 Simvastatin 40 mg PO QHS 12/09/20 - Social History Tobacco Use: cigarettes Vital Signs Temp Pulse Resp BP Pulse Ox 97.6 F L 89 18 112/55 L 94 12/10/20 08:04 12/10/20 08:04 12/10/20 08:04 12/10/20 08:04 12/10/20 08:04 Oxygen Delivery Method Room Air Weight: 118.4 kg Body Mass Index (BMI) 38.5 Finger Stick Blood Glucose 115 Laboratory Tests Past 24 Hrs 12/09/20 12/10/20 12/10/20 18:03 09:30 09:30 WBC 13.3 H RBC 3.95 L Hgb 11.2 L Hct 34.2 L MCV 86.6 MCH 28.4 MCHC 32.7 RDW Std Deviation 41.1 RDW Coeff of Kyle 13.0 Plt Count 333 MPV 8.9 Neut % (Auto) Not Reportable Absolute Neuts (auto) 10.6 H Absolute Lymphs (auto) 1.60 Total Counted 100 Neutrophils % (Manual) 80 H Lymphocytes % (Manual) 12 L Monocytes % (Manual) 2 Eosinophils % (Manual) 3 Metamyelocytes % 1 Myelocytes % 1 H Promyelocytes % 1 H Diff Path Review May foll Platelet Estimate ADEQUATE RBC Morphology NORM C+C Sodium 130 L Potassium 3.3 L Chloride 96 L Carbon Dioxide 27.0 Anion Gap 7 BUN 13 Creatinine 0.84 Estim Creat Clear Calc 95.86 Est GFR (MDRD) Af Amer 121 Est GFR (MDRD) Non-Af 100 BUN/Creatinine Ratio 15.6 Glucose 233 H Lactic Acid 1.6 Calcium 7.7 L - Other Studies Radiology: [] reviewed Other Studies: [] Route of nutrition/ use of supplements: [] Nutritional Intake: [] IV Site: [] Veras Catheter: [] - Physical Exam General: Alert, Oriented x3, Cooperative, No apparent distress HEENT: Atraumatic, PERRLA, EOMI Neck: Supple Lungs: Clear to auscultation, Normal air movement Cardiovascular: Tachycardic Abdomen: Soft, Non Tender, Non-Distended Extremities: Edema - mild BLE edema Skin: - - pronounced scrotal swelling, moderate tenderness, warmth, redness. No drainage. Musculoskeletal: No Tenderness to Palpation of Joints or Extremities Neurological: Cranial nerves II-XII grossly intact - Assessment/Plan Antibiotics: [] Assessment/Plan: [] Active and Suspected Problems Severe sepsis (Acute) Cellulitis of scrotum (Acute) Sinus tachycardia by electrocardiogram (Acute) Hyponatremia (Acute) Hypokalemia (Acute) Hyperglycemia due to type 2 diabetes mellitus (Acute) scrotal swelling and pain - concern for deeper infection, on vanc/alondra. Recommend CT pelvis, urology eval. Thank you, will follow, d/w primary team Update; contacted aboutu CT showing delgado's, recommend iv clinda and transfer
[2020-12-11 12:08] LABS: Pathologist Review Reviewed
== END 2020-12-10 12:31 | disposition short-term general hospital (02) | DRG 728 ==
LOC: ED 14:39 → PCU 15:42
PROVIDERS: Physician Assistant; Admitting Provider Internal Medicine; Emergency Provider Emergency Medicine; PCP Internal Medicine; Visit Provider Internal Medicine
DX: N49.2 Inflammatory disorders of scrotum (principal); E87.1 Hypo-osmolality and hyponatremia; I10 Essential (primary) hypertension; Z23 Encounter for immunization; B35.9 Dermatophytosis, unspecified; N49.3 Fournier gangrene; E11.65 Type 2 diabetes mellitus with hyperglycemia; E87.6 Hypokalemia; F17.210 Nicotine dependence, cigarettes, uncomplicated; E78.5 Hyperlipidemia, unspecified; E66.9 Obesity, unspecified; Z68.39 Body mass index [BMI] 39.0-39.9, adult; N43.3 Hydrocele, unspecified
CPT/HCPCS: 36415; 72192; 80048; 80053; 82962; 83605; 85025; 85610; 85730; 87040; 93005; 97802; 99285; 99406; G0008; J2185; J7030; J7040; 90686; A4216

== ENCOUNTER → 2021-03-20 07:51 | Outpatient (CLI) | payer MEDICARE, SELFPAY ==
[2020-12-09 15:41] VITALS: BMI 38.5
[2021-03-20 10:24] LABS: Hematocrit 42.9 % (40-54); Hemoglobin 13.6 g/dL (13.0-16.5); Mean Corp Hgb Conc 31.7 g/dL (32-36); Mean Corpuscular Hgb 27.9 pg (27.0-32.0); Mean Corpuscular Volume 88.1 fL (80-94); Mean Platelet Vol. 8.7 fl (6.2-12.0); Platelet Count 481 K/mm3 (150-450); RBC Distribution Width CV 14.6 % (11.6-14.6); RBC Distribution Width SD 46.5 fl (35.1-43.9); Red Blood Count 4.87 M/mm3 (4.6-6.2); White Blood Count 8.6 K/mm3 (4.4-11.0)
[2021-03-20 10:56] LABS: ALB/GLOB Ratio 0.8 RATIO (0.9-2.4); AST(SGOT) 10 U/L (15-37); Alanine Aminotransfer ALT/SGPT 13 U/L (16-61); Albumin, Serum 3.4 g/dL (3.2-5.0); Alkaline Phosphatase 73 U/L (45-117); Anion Gap 7 (5-15); BUN 9 mg/dL (7-18); BUN/Creat Ratio 10.9 RATIO (10-20); Calcium,Total 9.4 mg/dL (8.5-10.1); Chloride 102 mmol/L (98-107); Creatinine, Serum 0.83 mg/dL (0.70-1.30); EST Glomerular Filtration Rate 101 mL/min (>60); Est Glom Filt Rate - Afr Amer 122 mL/min (>60); Globulin 4.2 g/dL (2.2-4.2); Glucose 128 mg/dL (74-106); Potassium 3.7 mmol/L (3.5-5.1); Protein, Total 7.6 g/dL (6.4-8.2); Sodium Level 137 mmol/L (136-145)
[2021-03-20 10:59] LABS: Hemoglobin A1c 6.8 % (3.8-5.6)
== END ==
LOC: LAB 07:53
PROVIDERS: PCP Internal Medicine; Visit Provider Internal Medicine
DX: I10 Essential (primary) hypertension (principal); E11.65 Type 2 diabetes mellitus with hyperglycemia
CPT/HCPCS: 36415; 80053; 83036; 85027

== ENCOUNTER → 2021-05-26 09:01 | Outpatient (CLI) | payer MEDICARE, SELFPAY ==
[2020-12-09 15:41] VITALS: BMI 38.5
[2021-05-26 10:42] LABS: Hematocrit 44.7 % (40-54); Hemoglobin 14.5 g/dL (13.0-16.5); Mean Corp Hgb Conc 32.4 g/dL (32-36); Mean Corpuscular Volume 86.3 fL (80-94); Mean Platelet Vol. 8.8 fl (6.2-12.0); Platelet Count 444 K/mm3 (150-450); RBC Distribution Width CV 14.2 % (11.6-14.6); RBC Distribution Width SD 44.9 fl (35.1-43.9); Red Blood Count 5.18 M/mm3 (4.6-6.2); White Blood Count 8.6 K/mm3 (4.4-11.0)
[2021-05-26 11:09] LABS: ALB/GLOB Ratio 0.8 RATIO (0.9-2.4); AST(SGOT) 14 U/L (15-37); Alanine Aminotransfer ALT/SGPT 15 U/L (16-61); Albumin, Serum 3.6 g/dL (3.2-5.0); Alkaline Phosphatase 74 U/L (45-117); Anion Gap 5 (5-15); BUN 11 mg/dL (7-18); Calcium,Total 9.1 mg/dL (8.5-10.1); Chloride 100 mmol/L (98-107); Creatinine, Serum 0.92 mg/dL (0.70-1.30); EST Glomerular Filtration Rate 90 mL/min (>60); Est Glom Filt Rate - Afr Amer 108 mL/min (>60); Globulin 4.3 g/dL (2.2-4.2); Glucose 132 mg/dL (74-106); Protein, Total 7.9 g/dL (6.4-8.2); Sodium Level 137 mmol/L (136-145)
[2021-05-26 11:31] LABS: Hemoglobin A1c 7.5 % (3.8-5.6)
== END ==
LOC: LAB 09:03
PROVIDERS: PCP Internal Medicine; Visit Provider Internal Medicine
DX: I10 Essential (primary) hypertension (principal); E11.65 Type 2 diabetes mellitus with hyperglycemia; Z79.899 Other long term (current) drug therapy
CPT/HCPCS: 36415; 80053; 83036; 85027

== ENCOUNTER → 2021-05-28 13:31 | Outpatient (CLI) | payer MEDICARE, SELFPAY ==
[2020-12-09 15:41] VITALS: BMI 38.5
[2021-05-28 14:18] LABS: Amphetamine Urine VISTA NEGATIVE (<1000 ng/mL); Barbiturate Urine VISTA NEGATIVE (< 200 ng/mL); Benzodiazepine Urine VISTA NEGATIVE (< 200 ng/mL); Cocaine Urine VISTA NEGATIVE (< 300 ng/mL); Ecstacy Urine VISTA NEGATIVE (< 500 ng/mL); Methadone Urine VISTA NEGATIVE (< 300 ng/mL); PCP Urine VISTA NEGATIVE (< 25 ng/mL); THC Urine VISTA NEGATIVE (< 50 ng/mL); Vista UDS pH Range 5
== END ==
LOC: LABSPEC 13:32
PROVIDERS: PCP Internal Medicine; Referring Provider Internal Medicine; Visit Provider Internal Medicine
DX: Z79.899 Other long term (current) drug therapy (principal)
CPT/HCPCS: 80307

== ENCOUNTER → 2021-09-17 08:57 | Outpatient (CLI) | payer MEDICARE, SELFPAY ==
[2021-09-17 11:12] LABS: Anion Gap 6 (5-15); BUN 11 mg/dL (7-18); BUN/Creat Ratio 13.9 RATIO (10-20); Calcium,Total 9.5 mg/dL (8.5-10.1); Chloride 101 mmol/L (98-107); Creatinine, Serum 0.79 mg/dL (0.70-1.30); EST Glomerular Filtration Rate 106 mL/min (>60); Est Glom Filt Rate - Afr Amer 129 mL/min (>60); Glucose 119 mg/dL (74-106); Hemoglobin A1c 7.4 % (3.8-5.6); Potassium 3.2 mmol/L (3.5-5.1); Sodium Level 138 mmol/L (136-145)
== END ==
PROVIDERS: PCP Internal Medicine; Visit Provider Internal Medicine
DX: E11.9 Type 2 diabetes mellitus without complications (principal); Z79.4 Long term (current) use of insulin; Z79.899 Other long term (current) drug therapy
CPT/HCPCS: 36415; 80048; 83036

== ENCOUNTER 2022-12-28 18:02 | Inpatient (IN) | payer MEDICARE, MEDICAID, SELFPAY ==
[2022-12-28] VITALS (8 sets, daily range): BP systolic 88–132; BP diastolic 40–86; PULSE 89–120; RESP 17–23; TEMP 36.6–37.3; O2SAT 94–100; BMI 29.1; BMI 27.6
--- NOTE | 2022-12-28 18:08 | RAD_ITS ---
STUDY: XR Foot Min 3 Views CLINICAL: Male, 62 years old. necrosis TECHNIQUE: XR Foot Min 3 ViewsLEFT COMPARISON: None. FINDINGS: There is a plantar calcaneal spur. Normal visualized subtalar, talonavicular, calcaneocuboid, tarsal and tarsometatarsal articulations. There is degenerative arthrosis of the metatarsophalangeal joint of the hallux . Normal tibial and fibular sesamoid bones. Normal interphalangeal joint of the great toe. Normal phalanges of the great toe. Normal second through fifth metatarsophalangeal joints. Normal interphalangeal joints and phalanges of the lesser toes. There is demonstrated soft tissue swelling with soft tissue air. Lucency of the head of the first and second metatarsal bone may suggest an infectious process. There is been prior amputation or complete necrosis of the fourth and fifth digit. Lucent area in the base of the first proximal phalanx which suggests an infectious process. There is likely fracture of the head of the second metatarsal bone. RAD/Foot min 3 Views IMPRESSION: There is demonstrated soft tissue swelling with soft tissue air suggesting an infectious process. Lucency of the head of the first and second metatarsal bone may suggest an infectious process. There is been prior amputation or complete necrosis of the fourth and fifth digit. Lucent area in the base of the first proximal phalanx which suggests an infectious process. There is likely fracture of the head of the second metatarsal bone. Electronically Signed: Ermias Echeverria MD at 19:44 EST ,
--- NOTE | 2022-12-28 18:09 | EDS_ITS ---
[facility] History of Present Illness Chief Complaint: Wound Narrative Narrative: Patient developed frostbite about 2 months ago he has had progressive worsening of his feet, he is in too much pain to ambulate, he has been laying around his house. His pain got worse and now he has foul-smelling discharge. He has no subjective or objective fevers. He is a diabetic but has not been taking care of his diabetes he has not checked his blood sugar. He arrives via EMS. [facility] Medical History (Updated 12/28/22 @ 19:[address] Stewart Abrams MD) Diabetes Home Medications NK 12/28/22 [History Last Taken Unknown] Allergy/AdvReac Type Severity Reaction Status Date / Time Penicillins Allergy Anaphylaxis Verified 12/28/22 18:03 Sulfa (Sulfonamide Allergy Rash Verified 12/28/22 18:03 Antibiotics) Surgical History (Updated 12/28/22 @ 18:45 by Charlee Robbins) History of tonsillectomy Social History Smoking Status: Current every day smoker tobacco type: cigarettes ROS ROS ED ROS Narrative Past medical history: Reviewed, includes diabetes, hypertension, hypercholesterolemia Medications: Reviewed Social history: Noncontributory Review of systems: All systems negative except as indicated General: No fever, some chills Eyes: No visual changes ENT: No upper airway congestion, normal voice Neck: No neck pain Cardiovascular: No chest pain Respiratory: No shortness of breath or cough Gastrointestinal: No abdominal pain, nausea vomiting or diarrhea Genitourinary: No dysuria Musculoskeletal: As in HPI Skin: As in HPI EXAM Physical Exam Narrative Exam Narrative: Physical exam General: Patient appears chronically ill, he is disheveled Head: Normocephalic, Atraumatic Eyes: Conjunctiva not pale ENT: Slightly dry mucous membranes Neck: Supple, Nontender, No lymphadenopathy Cardiovascular: Regular rate, Regular rhythm Respiratory: Coarse bilateral breath sounds Abdomen: Soft, Nontender, Nondistended Back: Nontender, Normal Inspection. Extremities: Foul-smelling odor of both feet there is distal necrosis about mid foot down of both feet. The wounds are quite dirty and mixed with dog hair. The left foot does have some erythema and calor proximal to necrotic wounds. Skin: As above Neurological: No focal deficits. Const Vital Signs: 12/28/22 18:40 12/28/22 18:40 12/28/22 18:50 Temperature 99.2 F H 99.2 F H 99.2 F H Temperature Source Oral Oral Oral Pulse Rate 120 H 120 H 120 H Respiratory Rate 17 18 18 Blood Pressure 117/79 117/79 117/79 Blood Pressure Mean 91 91 91 Pulse Ox 98 98 98 Oxygen Delivery Method Room Air Room Air Room Air 12/28/22 19:03 Temperature Temperature Source Pulse Rate 111 H Respiratory Rate 20 H Blood Pressure 132/86 H Blood Pressure Mean 101 Pulse Ox 100 Oxygen Delivery Method Room Air [facility] MDM Lab Data Labs: Laboratory Results - last 24 hr 12/28/22 12/28/22 12/28/22 18:15 18:15 18:15 WBC 10.3 RBC 5.31 Hgb 14.6 Hct 45.5 MCV 85.7 MCH 27.5 MCHC 32.1 RDW Std Deviation 41.9 RDW Coeff of Kyle 13.3 Plt Count 704 H MPV 8.1 Immature Gran % (Auto) 1.200 H Neut % (Auto) 72.3 H Lymph % (Auto) 19.6 [place] % (Auto) 6.1 Eos % (Auto) 0.4 Baso % (Auto) 0.4 Absolute Neuts (auto) 7.4 Absolute Lymphs (auto) 2.02 Nucleated RBC % 0 Sodium 130 L Potassium 2.6 L* Chloride 88 L Carbon Dioxide 31.0 Anion Gap 11 BUN 9 Creatinine 1.07 Estim Creat Clear Calc 73.42 Est GFR (MDRD) Af Amer 90 Est GFR (MDRD) Non-Af 75 BUN/Creatinine Ratio 8.4 L Glucose 176 H Lactic Acid 3.8 H* Calcium 9.7 Total Bilirubin 0.60 AST 7 L ALT 10 L Alkaline Phosphatase 150 H C-React Prot Ext Range 255.00 H Total Protein 10.0 H Albumin 3.0 L Globulin 7.0 H Albumin/Globulin Ratio 0.4 L Radiography Diagnostic Testing: Chest x-ray read by me is unremarkable X-ray of the left foot interpreted by me as multiple areas of osteomyelitis X-ray of right foot shows multiple areas of osteomyelitis EKG Initial EKG: Comments: Sinus rhythm with a rate of 120. Slight ischemic changes are seen. Interpreted by emergency doctor Treatment and Re-Evaluation Narrative: A. Problems addressed Patient has necrotic feet, he initially had slight fever tachypnea of 20 and heart rate was 120s, he meets criteria for SIRS and since he has a source he meets criteria for sepsis. Antibiotics were started. He also has lactic acidosis. IV fluids were given antibiotics were given. I discussed the patient with podiatry, Dr. Crisostomo who will see the patient early in the morning, talk to the hospitalist for admission. B. Amount and/or complexity of the data 1. CBC, CMP, CRP and ESR were ordered and interpreted by me 2. Independent interpretation of test Telemetry: Sinus rhythm with a rate in the 110s. No ectopy. 3. I discussed with podiatry and medicine. C. Risk of complications and/or morbidity See above. Discharge Plan Triage Chief Complaint: Wound ED Provider: Stewart Abrams Dx/Rx/DC Orders Clinical Impression: Sepsis, Ischemic ulcer of both feet with necrosis of muscle, Osteomyelitis, Acute hypokalemia Prescriptions: No Action NK Primary Care Provider: Macrina Murphy Referrals: Macrina Murphy MD [Primary Care Provider] - Disposition Disposition: Acute Care [facility]
--- NOTE | 2022-12-28 18:11 | RAD_ITS ---
STUDY: XR Foot Min 3 Views CLINICAL: Male, 62 years old. NECROSIS TECHNIQUE: XR Foot Min 3 ViewsRIGHT COMPARISON: None. FINDINGS: There is a plantar calcaneal spur. There is non-specific soft tissue swelling of the foot with soft tissue air. This suggests underlying soft tissue infection. Lucency of the head of the first second third and fourth metatarsal bone suggesting underlying infection. Normal visualized subtalar, talonavicular, calcaneocuboid, tarsal and tarsometatarsal articulations. Normal metatarsophalangeal joint of the great toe. Normal tibial and fibular sesamoid bones. Normal interphalangeal joint of the great toe. Normal phalanges of the great toe. Normal second through fifth metatarsophalangeal joints. Normal interphalangeal joints and phalanges of the lesser toes. RAD/Foot min 3 Views IMPRESSION: There is non-specific soft tissue swelling of the foot with soft tissue air. This suggests underlying soft tissue infection. Lucency of the head of the first second third and fourth metatarsal bone suggesting underlying infection. Electronically Signed: Ermias Echeverria MD at 19:50 EST Reading Location ID and State: [facility] / MD , Service support ,
--- NOTE | 2022-12-28 18:12 | EKG12_ITS ---
Test Reason : WOUND Blood Pressure : / mmHG Vent. Rate : 120 BPM Atrial Rate : 120 BPM P-R Int : 134 ms QRS Dur : 124 ms QT Int : 354 ms P-R-T Axes : 064 100 -34 degrees QTc Int : 500 ms Sinus tachycardia with Premature atrial complexes Rightward axis Non-specific intra-ventricular conduction delay ST & T wave abnormality, consider inferolateral ischemia Abnormal ECG Confirmed by ELSIE HILL, LIBERTY ([id number]), field map editor LUANA CERDA ([id number]) on 12/29/2022 10:18:42 AM Referred By: Confirmed By:LIBERTY ZIMMERMAN MD
[2022-12-28 18:37] LABS: Absolute Lymphocyte Count 2.02 X10^3/uL (0.83-4.51); Absolute Neutrophil Count 7.4 X10^3/uL (2.0-7.7); Basophil# 0.04 X10^3/uL; Basophil% 0.4 % (0-1); Eosinophil# 0.04 X10^3/uL; Eosinophils% 0.4 % (0-5); Hematocrit 45.5 % (40-54); Hemoglobin 14.6 g/dL (13.0-16.5); Lymphocyte # 2.02 X10^3/ul (0.83-4.51); Lymphocyte % 19.6 % (19-41); Mean Corp Hgb Conc 32.1 g/dL (32-36); Mean Corpuscular Hgb 27.5 pg (27.0-32.0); Mean Corpuscular Volume 85.7 fL (80-94); Mean Platelet Vol. 8.1 fl (6.2-12.0); Monocyte# 0.63 X10^3/uL; Monocyte% 6.1 % (0-10); NRBC Flagged by Analyzer 0 % (0-5); Neutrophil # 7.43 X10^3/uL (2.7-7.7); Neutrophil % 72.3 % (47-70); Platelet Count 704 K/mm3 (150-450); RBC Distribution Width CV 13.3 % (11.6-14.6); RBC Distribution Width SD 41.9 fl (35.1-43.9); Red Blood Count 5.31 M/mm3 (4.6-6.2); White Blood Count 10.3 K/mm3 (4.4-11.0)
--- NOTE | 2022-12-28 19:00 | RAD_ITS ---
STUDY: X-RAY CHEST REASON FOR EXAM: Male, 62 years old. preop TECHNIQUE: XR Chest 1 View COMPARISON: None FINDINGS: There is no demonstrated pleural abnormality. Normal size heart. Normal mediastinum and taina. Normal visualized pulmonary arteries. Normal visualized aortic arch and descending thoracic aorta. Normal visualized thoracic spine. Normal visualized ribs, clavicles, and shoulders. There is no demonstrated abnormality of the visualized soft tissue structures of the upper abdomen. RAD/Chest 1 View (Portable) IMPRESSION: There are no acute findings. Electronically Signed: Ermias Echeverria MD at 19:35 EST ,
[2022-12-28 19:01] LABS: Lactic Acid 3.8 mmol/L (0.4-1.9)
[2022-12-28 19:05] LABS: ALB/GLOB Ratio 0.4 RATIO (0.9-2.4); AST(SGOT) 7 U/L (15-37); Alanine Aminotransfer ALT/SGPT 10 U/L (16-61); Alkaline Phosphatase 150 U/L (45-117); Anion Gap 11 (5-15); BUN 9 mg/dL (7-18); BUN/Creat Ratio 8.4 RATIO (10-20); Calcium,Total 9.7 mg/dL (8.5-10.1); Chloride 88 mmol/L (98-107); Creatinine, Serum 1.07 mg/dL (0.70-1.30); EST Glomerular Filtration Rate 75 mL/min (>60); Est Glom Filt Rate - Afr Amer 90 mL/min (>60); Estimated Creatinine Clearance 73.42 ml/min; Glucose 176 mg/dL (74-106); Potassium 2.6 mmol/L (3.5-5.1); Sodium Level 130 mmol/L (136-145)
[2022-12-28] MEDS: Clindamycin 600 MG/50 ML BAG 100 MG IV (19:15)
[2022-12-28 19:37] LABS: Erythrocyte Sedimentation Rate 33 mm/hr (0-20)
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
[2022-12-28] MEDS: Potassium Chloride Oral Tablet 20 MEQ 40 MEQ PO (20:09)
[2022-12-28] MEDS: 0.9% Normal Saline 1,000 ML 999 ML IV ×2 (20:09→21:40)
[2022-12-28 22:27] LABS: Reflex Lactate? Y
[2022-12-28] MEDS: 0.9% Saline Lock 10 ML Syringe IV ×2 (22:28→23:45)
[2022-12-28] MEDS: Morphine 2 MG/ML Syringe IV (23:42)
[2022-12-28 23:56] LABS: Lactic Acid 1.7 mmol/L (0.4-1.9)
[2022-12-29] VITALS (17 sets, daily range): BP systolic 88–112; BP diastolic 52–74; PULSE 74–92; RESP 14–20; TEMP 36.1–37.6; O2SAT 88–100; BMI 27.6
[2022-12-29] MEDS: Potassium Chloride Oral Tablet 20 MEQ 40 MEQ PO ×2 (01:40→08:41)
[2022-12-29 06:02] LABS: Absolute Lymphocyte Count 1.93 X10^3/uL (0.83-4.51); Absolute Neutrophil Count 4.5 X10^3/uL (2.0-7.7); Basophil# 0.04 X10^3/uL; Basophil% 0.5 % (0-1); Eosinophils% 1.3 % (0-5); Hematocrit 34.1 % (40-54); Hemoglobin 10.8 g/dL (13.0-16.5); Lymphocyte # 1.93 X10^3/ul (0.83-4.51); Lymphocyte % 25.9 % (19-41); Mean Corp Hgb Conc 31.7 g/dL (32-36); Mean Corpuscular Hgb 27.2 pg (27.0-32.0); Mean Corpuscular Volume 85.9 fL (80-94); Mean Platelet Vol. 8.3 fl (6.2-12.0); Monocyte# 0.84 X10^3/uL; Monocyte% 11.3 % (0-10); NRBC Flagged by Analyzer 0 % (0-5); Neutrophil # 4.48 X10^3/uL (2.7-7.7); Neutrophil % 60.2 % (47-70); Platelet Count 518 K/mm3 (150-450); RBC Distribution Width CV 13.3 % (11.6-14.6); RBC Distribution Width SD 42.4 fl (35.1-43.9); Red Blood Count 3.97 M/mm3 (4.6-6.2); White Blood Count 7.5 K/mm3 (4.4-11.0)
[2022-12-29 06:45] LABS: Anion Gap 7 (5-15); BUN 7 mg/dL (7-18); BUN/Creat Ratio 12.5 RATIO (10-20); Calcium,Total 8.2 mg/dL (8.5-10.1); Chloride 99 mmol/L (98-107); Creatinine, Serum 0.56 mg/dL (0.70-1.30); EST Glomerular Filtration Rate 158 mL/min (>60); Est Glom Filt Rate - Afr Amer 191 mL/min (>60); Estimated Creatinine Clearance 140.28 ml/min; Glucose 114 mg/dL (74-106); Potassium 3.2 mmol/L (3.5-5.1); Sodium Level 136 mmol/L (136-145)
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
[2022-12-29 07:48] LABS: Hemoglobin A1c 7.3 % (3.8-5.6)
--- NOTE | 2022-12-29 08:03 | WOUNDNOTE ---
wound photo: left foot
--- NOTE | 2022-12-29 08:04 | WOUNDNOTE ---
Addendum entered by Opal Parra 12/29/22 08:18: wound photo: left foot Original Note: wou nd photo: left foot
--- NOTE | 2022-12-29 08:17 | WOUNDNOTE ---
wound photo: right foot
--- NOTE | 2022-12-29 08:17 | WOUNDNOTE ---
wound photo: right foot
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
--- NOTE | 2022-12-29 10:21 | CASEMGMT ---
Addendum entered by Hanna Ellington 12/29/22 12:02: SW attempted to meet with pt in room to inform that [facility] is not in network. Pt was sleeping at this time. Pt now being prepped for surgery. Will inform pt tomorrow and continue d/c plan. Original Note: Social Work ? SW in to meet with pt following update from RN Brenda WILSON, that pt is planning rehab placement at nursing facility following surgery. SW introduced self and role at the hospital. Pt agreeable to discussing discharge planning. A list of SNF providers including quality and resource use data consistent with the patient?s preferred geographic region, medical needs, and insurance network were provided from the [employer] Guide. Pt reviewed list but asked if SW would check if [facility] is in network, as pt has been to that facility before and enjoyed it. SW agreed and looked through online list, not able to find this particular SNF for pt insurance. SW also called SNF and was told not in network. SW will follow up with pt for choice. PLAN: SNF? [facility]?
--- NOTE | 2022-12-29 11:40 | CASEMGMT ---
Social Work RN Brenda WILSON, informed MARIETTA that pt has been working with Srinivasa at [facility] regarding safe housing concerns. MARIETTA attempted to speak with Srinivasa regarding this and to update that pt is admitted to [facility]. Srinivasa did not answer. MARIETTA left message with call back number. [facility]UD[facility] Porter
--- NOTE | 2022-12-29 12:22 | NURSING ---
off the floor at this time. Went to surgery.
--- NOTE | 2022-12-29 13:15 | BON_PTH ---
PATIENT: LISA LEONE LOC: MS3 U#:[id number] AGE/SX: 62/M [place] [facility] [place]28[place]: Dr. Refugio Agudelo DO : 1960 BED: 1 DIS: 12/31/2022 SPEC #: [id number] RECD: 12/29/22 16:35 STATUS: ALEC REQ #: [id number] GARY: 12/29/22 13:[address]: Brady Goldberg DEPT: SURGICAL PATHOLOGY RECD BY: Madai Avina ENTERED: 12/30/22 09:59 SP TYPE: Bone OTHR DR: Dr. Brady Goldberg, DPM MD Dr. Refugio Escalante DO Dr. Paul Nielsen, MD Dr. Robert Leininger, MD Tissues: A - Foot, NOS B - Foot, NOS Procedures: Decalcification bone/plaque Surgery Specimen Level IV Comments: @ Ordering doctor for DEC edited from to DR.JWUNNI Darrel IRAHETA at 12/30/22 152 @ Ordering doctor for SUIV edited from to @ by MYRTLE at 12/30/22 1522 @ Submitting doctor edited from to @ christiana IRAHETA at 12/30/22 1522 HEADER OPERATION: Foot amputation, transmetatarsal PRE-OP DIAGNOSIS: Bilateral foot osteomyelitis and necrosis TISSUE SUBMITTED: A ? Right foot, B ? Left foot MICROSCOPIC DIAGNOSIS A. Right foot, transmetatarsal amputation: Skin and soft tissue with ulceration, acute and chronic inflammation and tissue necrosis. Bone with osteonecrosis and associated chronic change. B. Left foot, transmetatarsal amputation: Skin and soft tissue with ulceration, acute and chronic inflammation, granulation and tissue necrosis. Bone with acute osteomyelitis and osteonecrosis. AM:alicia 01/04/2023 MICROSCOPIC DESCRIPTION Slides are reviewed. GROSS DESCRIPTION A - Received in fixative is one container labeled with the patient's name and designated right foot. The specimen consists of a portion of foot containing all five toes measuring 11.0 x 7.0 x 5.0 cm. The entire skin surface shows gangrenous necrosis. Also present in the container is a portion of metatarsal bone measuring 11.0 x 4.0 x 6.0 cm. The soft tissue shows ulcerated area. Stereo Operator sections are submitted in six cassettes as follows: 1 & 2 - skin with underlying tissue, 3-6 - bone after decalcification from the toes and metatarsal bone. B - Received in fixative is one container labeled with the patient's name and designated left foot. The specimen consists of a portion of foot containing three toes, great toe and adjacent two toes, measuring 10.0 x 9.0 x 5.0 cm. The skin surface of the toe, both dorsal and plantar surface, shows gangrenous necrosis. Extensive area of ulceration are also noted. Stereo Operator sections are submitted in six cassettes as follows: 1 & 2 - ulcerated and gangrenous area, 3-6 - bone after decalcification. / KERMIT:alicia 12/30/2022 TC:2 CPT: 05536 x2, 98170 x2
[2022-12-29 13:25] LABS: Troponin-I HS 7 pg/mL (3.0-78.0)
[2022-12-29] MEDS: Lactated Ringers 1,000 ML 15 ML IV (14:07)
[2022-12-29] MEDS: Clindamycin 600 MG/50 ML BAG 100 MG IV (14:27)
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
[2022-12-29] MEDS: Ipratropium/Albuterol Sulfate 3 ML AMPUL.NEB INHALATION (16:14)
[2022-12-29 16:15] LABS: Bedside Glucose 97 mg/dL (74-106)
[2022-12-29] MEDS: Ensure Plus High Protein 120 ML LIQUID PO ×2 (17:11→22:24)
[2022-12-29] MEDS: 0.9% Saline Lock 10 ML Syringe IV ×2 (17:16→21:01)
--- NOTE | 2022-12-29 17:18 | NURSING ---
pt back from surgery in room. Continous spo2 applied to Rt middle finger.
[2022-12-29 17:24] LABS: M R Staph aureus DNA By PCR Negative (Negative); Probe Check PASS; Staph aureus DNA By PCR POSITIVE (Negative)
[2022-12-29 17:25] LABS: M R Staph aureus DNA By PCR Negative (Negative); Probe Check PASS; Staph aureus DNA By PCR POSITIVE (Negative)
--- NOTE | 2022-12-29 17:26 | PCM.RX.CS ---
Consult Pharmacy has been consulted to manage selected antiobiotic: Vancomycin Type of Consult: New start Suspected Infection: Skin/Soft tissue, Osteomyelitis Prior Doses of Antibiotics Received/Current Regimen: the patient did received a dose of vancomycin 1250mg IV x1 last night at 22:20 Labs: Sodium 136 mmol/L (136-145) 12/29/22 04:55 Potassium 3.2 mmol/L (3.5-5.1) L 12/29/22 04:55 Chloride 99 mmol/L (98-107) 12/29/22 04:55 Carbon Dioxide 30.0 mmol/L (21.0-32.0) 12/29/22 04:55 Anion Gap 7 (5-15) 12/29/22 04:55 BUN 7 mg/dL (7-18) 12/29/22 04:55 Creatinine 0.56 mg/dL (0.70-1.30) L 12/29/22 04:55 Est GFR (MDRD) Af Amer 191 mL/min (>60) 12/29/22 04:55 Est GFR (MDRD) Non-Af 158 mL/min (>60) 12/29/22 04:55 BUN/Creatinine Ratio 12.5 RATIO (10-20) 12/29/22 04:55 Glucose 114 mg/dL (74-106) H 12/29/22 04:55 Weight used for dosin kg Estimated Creatinine Clearance: >100ml/min Goal Trough: 15-20 mcg/mL Pharmacy Plan for Drug Dosing: Since it has been about 19 hours since the patient received last night's dose and since it was only 1250mg, will load as ordered with 2000mg IV x1 now. Then will continue after that with 1750mg IV q12h. Chose not to go with the suggested [facility] nomogram dosing of 1000mg q8h since the patient is 62 years old, fearing that q8h dosing could likely result in a trough above goal range. Therefore, will dose as previously stated with 1750mg q12h, which is one step down on the nomogram. Will order a trough before the 3rd dose of the 1750mg. Pharmacy Service will continue to monitor and adjust dosing as required. Follow-Up Labs: Trough Vancomycin Labs to be done on [date and time ordered]: 12/31/22 04:30
--- NOTE | 2022-12-29 18:16 | PCM.PN.HOSP ---
Reason for Visit Reason for Visit: Diagnoses Sepsis, unspecified organism (12/28/22) Type 2 diabetes mellitus with diabetic polyneuropathy (12/28/22) Hypo-osmolality and hyponatremia (12/28/22) Hypokalemia (12/28/22) Non-pressure chronic ulcer of other part of right foot with necrosis of muscle (12/28/22) Non-pressure chronic ulcer of other part of left foot with necrosis of muscle (12/28/22) Osteomyelitis, unspecified (12/28/22) Personal history of other endocrine, nutritional and metabolic disease (12/28/22) Personal history of other diseases of the circulatory system (12/28/22) Subjective Subjective Patient was seen and examined today, he underwent surgery with bilateral transmetatarsal amputations of both feet. I talked to the patient after he returned to his room from surgery, he did not complain of any shortness of breath or chest discomfort. I talked with podiatry about his care and advised to place the patient on meropenem and vancomycin. I also requested that podiatry write a consult for ID to see the patient tomorrow. Patient will need placement in a [facility] facility for rehab services-patient is aware of this. Objective Data Objective Data Vital Signs: Vital Signs Temp Pulse Resp BP Pulse Ox O2 Del Method O2 Flow Rate 96.9 F L 88 16 98/67 98 Room Air 2 12/29/22 17:25 12/29/22 17:25 12/29/22 17:25 12/29/22 17:25 12/29/22 17:25 12/29/22 17:25 12/29/22 16:15 Oxygen Flow Rate (L/min) 2 Oxygen Delivery Method Room Air Weight: 86 kg Body Mass Index (BMI) 27.6 Intake & Output: Intake and Output for Last 24 Hours 12/27/22 12/28/22 12/29/22 23:59 23:59 23:59 Intake Total 2049 1797.0 / 1797.0 Output Total 950 / 950 Balance 2049 847.0 / 847.0 Medical Nutrition Assessment Dietitian: Malnutrition Criteria Met Start: 12/29/22 14:00 Freq: Status: Active Protocol: Document 12/29/22 14:00 RMA (Rec: 12/29/22 14:00 RMA [id number]) Nutrition Malnutrition Evidence of Malnutrition Exists Yes Malnutrition (severe): Chronic Evidenced By Suboptimal Energy Intake ( Severe),Weight Loss (Severe) Intake Problem Increased Nutrient Needs (specify) Etiology for protein related to increased demands for wound healing Signs/Symptoms as evidenced by necrosis to all toes BL feet and pending surgery Status Active Problem Clinical Problem Chronic Disease or Condition Related Malnutrition Etiology Severe protein-calorie malnutrition in the context of chronic disease related to inadequate oral intake/poor appetite Signs/Symptoms as evidenced by 24% wt loss x 1 year and PO meeting less than 50% estimated nutrition needs x past 6 months Status Active Problem Recommendation Dietitian Recommendations/Changes Recommend advance diet as tolerated post-op to 2000 calorie/consistent carbohydrate; cardiac. Add 1-2 oz extra meat/protein Q meal as accepted by patient when advanced from NPO. Will add Jerry BID for wound healing with meds. Continue 120ml ensure plus high protein 4 times per day w / medpass. Adjust ONS as needed. Diet education as indicated prior to d/c. Lab / Micro Data Result Diagrams: 12/29/22 04:55 12/29/22 04:55 Labs: Laboratory Results - last 24 hr 12/28/22 18:15: WBC 10.3, RBC 5.31, Hgb 14.6, Hct 45.5, MCV 85.7, MCH 27.5, MCHC 32.1, RDW Std Deviation 41.9, RDW Coeff of Kyle 13.3, Plt Count 704 H, MPV 8.1, Immature Gran % (Auto) 1.200 H, Neut % (Auto) 72.3 H, Lymph % (Auto) 19.6, Weld % (Auto) 6.1, Eos % (Auto) 0.4, Baso % (Auto) 0.4, Absolute Neuts (auto) 7.4, Absolute Lymphs (auto) 2.02, Nucleated RBC % 0, ESR 33 H 12/28/22 18:15: Sodium 130 L, Potassium 2.6 L*, Chloride 88 L, Carbon Dioxide 31.0, Anion Gap 11, BUN 9, Creatinine 1.07, Estim Creat Clear Calc 73.42, Est GFR (MDRD) Af Amer 90, Est GFR (MDRD) Non-Af 75, BUN/Creatinine Ratio 8.4 L, Glucose 176 H, Calcium 9.7, Total Bilirubin 0.60, AST 7 L, ALT 10 L, Alkaline Phosphatase 150 H, C-React Prot Ext Range 255.00 H, Total Protein 10.0 H, Albumin 3.0 L, Globulin 7.0 H, Albumin/Globulin Ratio 0.4 L 12/28/22 18:15: Lactic Acid 3.8 H* 12/28/22 23:15: Lactic Acid 1.7 12/29/22 04:55: WBC 7.5, RBC 3.97 L, Hgb 10.8 L, Hct 34.1 L, MCV 85.9, MCH 27.2, MCHC 31.7 L, RDW Std Deviation 42.4, RDW Coeff of Kyle 13.3, Plt Count 518 H, MPV 8.3, Immature Gran % (Auto) 0.800, Neut % (Auto) 60.2, Lymph % (Auto) 25.9, Weld % (Auto) 11.3 H, Eos % (Auto) 1.3, Baso % (Auto) 0.5, Absolute Neuts (auto) 4.5, Absolute Lymphs (auto) 1.93, Nucleated RBC % 0 12/29/22 04:55: Sodium 136, Potassium 3.2 L, Chloride 99, Carbon Dioxide 30.0, Anion Gap 7, BUN 7, Creatinine 0.56 L, Estim Creat Clear Calc 140.28, Est GFR (MDRD) Af Amer 191, Est GFR (MDRD) Non-Af 158, BUN/Creatinine Ratio 12.5, Glucose 114 H, Calcium 8.2 L 12/29/22 04:55: Hemoglobin A1c 7.3 H 12/29/22 13:00: Troponin I High Sens 7 12/29/22 15:56: POC Glucose 97 12/29/22 : S.aureus Protein A PCR POSITIVE H, MRSA (PCR) Negative 12/29/22 : S.aureus Protein A PCR POSITIVE H, MRSA (PCR) Negative Radiography Diagnostic Testing: Radiology Impression Foot X-Ray 12/28/22 18:08 IMPRESSION: There is demonstrated soft tissue swelling with soft tissue air suggesting an infectious process. Lucency of the head of the first and second metatarsal bone may suggest an infectious process. There is been prior amputation or complete necrosis of the fourth and fifth digit. Lucent area in the base of the first proximal phalanx which suggests an infectious process. There is likely fracture of the head of the second metatarsal bone. Electronically Signed: Ermias Echeverria MD at 19:44 EST , Foot X-Ray 12/28/22 18:11 IMPRESSION: There is non-specific soft tissue swelling of the foot with soft tissue air. This suggests underlying soft tissue infection. Lucency of the head of the first second third and fourth metatarsal bone suggesting underlying infection. Electronically Signed: Ermias Echeverria MD at 19:50 EST , Chest X-Ray 12/28/22 19:00 IMPRESSION: There are no acute findings. Electronically Signed: Ermias Echeverria MD at 19:35 EST , Physical Exam Const alert, oriented x3, no apparent distress and healthy appearing General Appearance: cooperative, well kempt and well developed Orientation / Consciousness: awake, oriented to person, oriented to place and oriented to time HEENT normocephalic, head/scalp atraumatic and moist oral mucous membranes Eyes PERRL, EOMs intact bilaterally and conjunctivae normal Neck supple, no JVD, thyroid normal and no carotid bruits General: trachea midline Resp normal respiratory effort, no retractions, no use of accessory muscles and clear to auscultation bilaterally Auscultation: Negative for rales, rhonchi or wheezes Cardio regular rate, regular rhythm, S1 normal heart sound, S2 normal heart sound, no murmurs, no rub and no gallops GI normal to inspection, nondistended, normoactive bowel sounds, soft to palpation, non-tender and non-distended Extremity Extremity Narrative: Patient had bilateral surgical wraps on his feet from his amputation today, these were not removed for examination of the area Neuro oriented x3, CN's II-XII intact bilaterally, moves all extremities, no focal motor deficits and no sensory deficits noted Sensorium / Orientation: awake and alert Speech: speech normal Psych affect normal Assessment & Plan Assessment/Plan (1) Diabetes mellitus with diabetic polyneuropathy: PLAN: Plan 1. Gangrene to forefoot bilaterally with osteomyelitis-status post right and left forefoot amputation postop day 0-podiatry is providing surgical care for the patient, he will be seen in consultation by infectious diseases, patient was placed on meropenem and vancomycin. #2 type 2 diabetes-patient is not currently on any medications, blood sugar will be monitored, sliding scale insulin will be used if necessary #3 neuropathy of the feet secondary to type 2 diabetes-complicates care, medical course, recovery, and prognosis #4 hypokalemia-patient was given supplemental potassium today Patient will need at least short-term placement in the [facility] facility at time of discharge from the hospital. Total clinical time spent by myself addressing the patient's medical issues, reviewing all the data, and collaborating with patient's care team: 35-minutes Charges/Coding Visit Charges Inpatient E&M: 87690 Subs Hosp L2
[2022-12-29] MEDS: Juven (unflavored) Packet 1 PACKET PO (18:37)
[2022-12-29 19:10] LABS: Bedside Glucose 110 mg/dL (74-106)
[2022-12-29] MEDS: Morphine 2 MG/ML Syringe IV (21:01)
[2022-12-29 21:30] LABS: Bedside Glucose 139 mg/dL (74-106)
[2022-12-30 04:30] VITALS: BP 102/66; PULSE 87; RESP 16; TEMP 37; O2SAT 98
[2022-12-30] MEDS: 0.9% Saline Lock 10 ML Syringe IV ×2 (05:43→18:03)
[2022-12-30] MEDS: Morphine 2 MG/ML Syringe IV (05:44)
--- NOTE | 2022-12-30 07:14 | PCM.PROGNOTE ---
Subjective Subjective Patient was seen this morning for follow up on bilateral feet. He is doing well, no complaints, no f/c/n/v. Objective Data Objective Data Vital Signs: Vital Signs Temp Pulse Resp BP Pulse Ox O2 Del Method O2 Flow Rate 98.6 F 87 16 102/66 98 Room Air 2 12/30/22 04:30 12/30/22 04:30 12/30/22 04:30 12/30/22 04:30 12/30/22 04:30 12/30/22 04:30 12/29/22 16:15 Oxygen Flow Rate (L/min) 2 Oxygen Delivery Method Room Air Weight: 86 kg Body Mass Index (BMI) 27.6 Intake & Output: Intake and Output for Last 24 Hours 12/28/22 12/29/22 12/30/22 23:59 23:59 23:59 Intake Total 0 / 2250 2457.0 / 2457.0 120 / 120 Output Total 950 / 1550 600 / 600 Balance 2049 / 0 1507.0 / 907.0 -480 / -480 Medical Nutrition Assessment Dietitian: Malnutrition Criteria Met Start: 12/29/22 14:00 Freq: Status: Active Protocol: Document 12/29/22 14:00 RMA (Rec: 12/29/22 14:00 RMA [id number]) Nutrition Malnutrition Evidence of Malnutrition Exists Yes Malnutrition (severe): Chronic Evidenced By Suboptimal Energy Intake ( Severe),Weight Loss (Severe) Intake Problem Increased Nutrient Needs (specify) Etiology for protein related to increased demands for wound healing Signs/Symptoms as evidenced by necrosis to all toes BL feet and pending surgery Status Active Problem Clinical Problem Chronic Disease or Condition Related Malnutrition Etiology Severe protein-calorie malnutrition in the context of chronic disease related to inadequate oral intake/poor appetite Signs/Symptoms as evidenced by 24% wt loss x 1 year and PO meeting less than 50% estimated nutrition needs x past 6 months Status Active Problem Recommendation Dietitian Recommendations/Changes Recommend advance diet as tolerated post-op to 2000 calorie/consistent carbohydrate; cardiac. Add 1-2 oz extra meat/protein Q meal as accepted by patient when advanced from NPO. Will add Jerry BID for wound healing with meds. Continue 120ml ensure plus high protein 4 times per day w / medpass. Adjust ONS as needed. Diet education as indicated prior to d/c. Lab / Micro Data Result Diagrams: 12/29/22 04:55 12/29/22 04:55 Labs: Laboratory Results - last 24 hr 12/29/22 04:55: Hemoglobin A1c 7.3 H 12/29/22 12:02: POC Glucose 110 H 12/29/22 13:00: Troponin I High Sens 7 12/29/22 15:56: POC Glucose 97 12/29/22 21:12: POC Glucose 139 H 12/29/22 : S.aureus Protein A PCR POSITIVE H, MRSA (PCR) Negative 12/29/22 : S.aureus Protein A PCR POSITIVE H, MRSA (PCR) Negative Physical Exam Const alert and no apparent distress Constitutional Narrative: Bilateral foot debridement to midfoot - deep tissues and bone exposed, tissues are healthy and viable, no maloder, no purulence, no visible abscess, on fluctuance, no crepitus present bilateral- clinically vascular status intact, no evidence of DVT bilateral. Assessment & Plan Assessment/Plan (1) Osteomyelitis: (2) History of type 2 diabetes mellitus: (3) Diabetes mellitus with diabetic polyneuropathy: PLAN: Plan Evaluation performed. s/p bilateral foot debridement - bleeding controlled, and tissues healthy and viable at this time. Plan for bilateral wound vacs. Cultures have been obtained - Patient has been started on IV antibiotics - Vanc and Meropenem. ID has been consulted. No weightbearing bilateral foot. Podiatry will continue to follow patient.
[2022-12-30 07:38] VITALS: O2SAT 93
--- NOTE | 2022-12-30 07:45 | RAD_ITS ---
EXAM: XR RIGHT FOOT COMPLETE, 3 OR MORE VIEWS CLINICAL INDICATION: post op TECHNIQUE: Frontal, lateral and oblique views of the right foot. This report was created using SCR[employer] report generation technology. COMPARISON: XR Foot dated 12/28/2022 FINDINGS: BONES/JOINTS: Interval transmetatarsal amputation of the right foot. SOFT TISSUES: Very little soft tissue covering noted along the surgical site. No radiopaque foreign body. RAD/Foot min 3 Views IMPRESSION: As above. Electronically Signed: Kin Maynard MD at 8:41 EST ,
--- NOTE | 2022-12-30 07:45 | RAD_ITS ---
STUDY: X-RAY - LEFT FOOT CLINICAL: Male, 62 years old. Postoperative evaluation. TECHNIQUE: 3 view(s) of the foot. COMPARISON: December 28, 2022. FINDINGS: Amputation of the distal aspects of the first through fifth toes with minimal soft tissue swelling at the surgical site. Diffuse soft tissue swelling. RAD/Foot min 3 Views IMPRESSION: Postsurgical changes with diffuse soft tissue swelling. Electronically Signed: William Terrell, at 9:45 EST ,
[2022-12-30] MEDS: Juven (unflavored) Packet 1 PACKET PO ×2 (08:10→17:20)
[2022-12-30] MEDS: Ensure Plus High Protein 120 ML LIQUID PO ×4 (09:41→21:38)
[2022-12-30 09:59] VITALS: BP 101/62; PULSE 94; RESP 18; TEMP 37; O2SAT 97
--- NOTE | 2022-12-30 10:16 | WOUNDNOTE ---
wound photo: left foot
--- NOTE | 2022-12-30 10:17 | WOUNDNOTE ---
wound photo: right foot
--- NOTE | 2022-12-30 11:41 | CASEMGMT ---
Addendum entered by Hanna Ellington 12/30/22 15:46: [facility] accepted and will begin precert today. SW unable to inform pt of acceptance as pt sleeping most of the afternoon. Original Note: Social Work? SW in to meet with pt following surgery. SW informed pt that [facility] is not in network with pt insurance. Pt voiced understanding and is agreeable to provide other choices. Pt reviewed list and informed SW that first choice is [facility] in [place], second choices is [facility] in [place]. ? SW sent referral to [facility] at this time. PLAN: [facility], pending acceptance and precert? CLAUDIA Porter?
[2022-12-30 12:40] LABS: Bedside Glucose 141 mg/dL (74-106)
--- NOTE | 2022-12-30 13:26 | PCM.CONS.GEN ---
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 Wound cx with GNR x2, pcr (+) mSSA. Taken to OR 12/29/[address] Goldberg for bilat TMA. Cont empiric vanc/zosyn. Will follow, thank you (3) Osteomyelitis: HPI Consult Data Date of Consult: 12/30/22 HPI Narrative Reason for Consultation: bilat foot gangrene HPI Narrative: LISA LEONE, is a 62 M with DM neuropathy, prior delgado's gangrene, presented 12/28 with nearly two months of progressive bilat feet gangrene after getting frostbite around 11/03/22. Minimal pain, no fever or chills. Had some increasing redness, drainage, odor. Came to ED, seen by podiatry, taken to OR for bilat TMA by Dr. Goldberg on 12/29. Feeling ok today. Full ROS performed and neg except as noted above. PFSH Medical History Diabetes Sleep apnea Smoker Home Medications NK 12/28/22 [History Last Taken Unknown] Allergy/AdvReac Type Severity Reaction Status Date / Time Penicillins Allergy Anaphylaxis Verified 12/28/22 18:03 Sulfa (Sulfonamide Allergy Rash Verified 12/28/22 18:03 Antibiotics) Surgical History History of tonsillectomy Social History Smoking Status: Current every day smoker tobacco type: cigarettes Physical Exam Const alert, oriented x3 and no apparent distress General Appearance: cooperative HEENT normocephalic and head/scalp atraumatic Eyes PERRL and EOMs intact bilaterally Neck supple and No nodes Resp normal air movement and clear to auscultation bilaterally Cardio regular rate and regular rhythm GI soft to palpation, non-tender and non-distended Extremity General Extremity: Negative for edema Skin Skin Narrative: Reviewed photos of feet pre- and post-op. Neuro CN's II-XII intact bilaterally Medical Records Data Medical Nutrition Assessment Dietitian: Malnutrition Criteria Met Start: 12/29/22 14:00 Freq: Status: Active Protocol: Document 12/29/22 14:00 RMA (Rec: 12/29/22 14:00 RMA [id number]) Nutrition Malnutrition Evidence of Malnutrition Exists Yes Malnutrition (severe): Chronic Evidenced By Suboptimal Energy Intake ( Severe),Weight Loss (Severe) Intake Problem Increased Nutrient Needs (specify) Etiology for protein related to increased demands for wound healing Signs/Symptoms as evidenced by necrosis to all toes BL feet and pending surgery Status Active Problem Clinical Problem Chronic Disease or Condition Related Malnutrition Etiology Severe protein-calorie malnutrition in the context of chronic disease related to inadequate oral intake/poor appetite Signs/Symptoms as evidenced by 24% wt loss x 1 year and PO meeting less than 50% estimated nutrition needs x past 6 months Status Active Problem Recommendation Dietitian Recommendations/Changes Recommend advance diet as tolerated post-op to 2000 calorie/consistent carbohydrate; cardiac. Add 1-2 oz extra meat/protein Q meal as accepted by patient when advanced from NPO. Will add Jerry BID for wound healing with meds. Continue 120ml ensure plus high protein 4 times per day w / medpass. Adjust ONS as needed. Diet education as indicated prior to d/c. Lab / Micro Data Attestation: I reviewed the patient's lab results. Result Diagrams: 12/29/22 04:55 12/29/22 04:55 Labs: Laboratory Results - last 24 hr 12/29/22 12:02: POC Glucose 110 H 12/29/22 15:56: POC Glucose 97 12/29/22 21:12: POC Glucose 139 H 12/29/22 : S.aureus Protein A PCR POSITIVE H, MRSA (PCR) Negative 12/29/22 : S.aureus Protein A PCR POSITIVE H, MRSA (PCR) Negative 12/30/22 12:15: POC Glucose 141 H Micro: Microbiology 12/29/22 Unknown Bone - Left Foot Wound Culture - Preliminary 12/29/22 Unknown Bone - Right Foot Wound Culture - Preliminary GNR non family physician GNR lactose family physician 12/29/22 Unknown Tissue - Right Foot Wound Culture - Preliminary GNR lactose family physician GNR non family physician 12/29/22 Unknown Tissue - Left Foot Wound Culture - Preliminary GNR non family physician Radiology Impression Foot X-Ray 12/30/22 07:45 IMPRESSION: As above. Electronically Signed: Kin Maynard MD at 8:41 EST , Foot X-Ray 12/30/22 07:45 IMPRESSION: Postsurgical changes with diffuse soft tissue swelling. Electronically Signed: William Terrell, at 9:45 EST ,
--- NOTE | 2022-12-30 14:05 | PN.HOSP_ITS ---
Reason for Visit Reason for Visit: Diagnoses Sepsis, unspecified organism (12/28/22) Type 2 diabetes mellitus with diabetic polyneuropathy (12/28/22) Hypo-osmolality and hyponatremia (12/28/22) Hypokalemia (12/28/22) Non-pressure chronic ulcer of other part of right foot with necrosis of muscle (12/28/22) Non-pressure chronic ulcer of other part of left foot with necrosis of muscle (12/28/22) Osteomyelitis, unspecified (12/28/22) Personal history of other endocrine, nutritional and metabolic disease (12/28/22) Personal history of other diseases of the circulatory system (12/28/22) Subjective Subjective Patient was seen and examined today, his postprandial blood sugar today was 141. Patient is on no medications for type 2 diabetes, I have decided to place him on metformin twice a day. Patient has no complaints of any surgical site dis comfort. Objective Data Objective Data Vital Signs: Vital Signs Temp Pulse Resp BP Pulse Ox O2 Del Method O2 Flow Rate 98.6 F 94 18 101/62 97 Room Air 2 12/30/22 09:59 12/30/22 09:59 12/30/22 09:59 12/30/22 09:59 12/30/22 09:59 12/30/22 10:57 12/29/22 16:15 Oxygen Flow Rate (L/min) 2 Oxygen Delivery Method Room Air Weight: 86 kg Body Mass Index (BMI) 27.6 Intake & Output: Intake and Output for Last 24 Hours 12/28/22 12/29/22 12/30/22 23:59 23:59 23:59 Intake Total 2049 2457.0 / 2457.0 775 / 775 Output Total 950 / 1550 1250 / 1250 Balance 2049 1507.0 / 907.0 -475 / -475 Medical Nutrition Assessment Dietitian: Malnutrition Criteria Met Start: 12/29/22 14:00 Freq: Status: Active Protocol: Document 12/29/22 14:00 RMA (Rec: 12/29/22 14:00 RMA [id number]) Nutrition Malnutrition Evidence of Malnutrition Exists Yes Malnutrition (severe): Chronic Evidenced By Suboptimal Energy Intake ( Severe),Weight Loss (Severe) Intake Problem Increased Nutrient Needs (specify) Etiology for protein related to increased demands for wound healing Signs/Symptoms as evidenced by necrosis to all toes BL feet and pending surgery Status Active Problem Clinical Problem Chronic Disease or Condition Related Malnutrition Etiology Severe protein-calorie malnutrition in the context of chronic disease related to inadequate oral intake/poor appetite Signs/Symptoms as evidenced by 24% wt loss x 1 year and PO meeting less than 50% estimated nutrition needs x past 6 months Status Active Problem Recommendation Dietitian Recommendations/Changes Recommend advance diet as tolerated post-op to 2000 calorie/consistent carbohydrate; cardiac. Add 1-2 oz extra meat/protein Q meal as accepted by patient when advanced from NPO. Will add Jerry BID for wound healing with meds. Continue 120ml ensure plus high protein 4 times per day w / medpass. Adjust ONS as needed. Diet education as indicated prior to d/c. Lab / Micro Data Result Diagrams: 12/29/22 04:55 12/29/22 04:55 Labs: Laboratory Results - last 24 hr 12/29/22 12:02: POC Glucose 110 H 12/29/22 15:56: POC Glucose 97 12/29/22 21:12: POC Glucose 139 H 12/29/22 : S.aureus Protein A PCR POSITIVE H, MRSA (PCR) Negative 12/29/22 : S.aureus Protein A PCR POSITIVE H, MRSA (PCR) Negative 12/30/22 12:15: POC Glucose 141 H Micro: Microbiology 12/29/22 Unknown Bone - Left Foot Wound Culture - Preliminary 12/29/22 Unknown Bone - Right Foot Wound Culture - Preliminary GNR non solar panel installation supervisor GNR lactose solar panel installation supervisor 12/29/22 Unknown Tissue - Right Foot Wound Culture - Preliminary GNR lactose solar panel installation supervisor GNR non solar panel installation supervisor 12/29/22 Unknown Tissue - Left Foot Wound Culture - Preliminary GNR non solar panel installation supervisor Radiography Diagnostic Testing: Radiology Impression Foot X-Ray 12/30/22 07:45 IMPRESSION: As above. Electronically Signed: Kin Maynard MD at 8:41 EST , Foot X-Ray 12/30/22 07:45 IMPRESSION: Postsurgical changes with diffuse soft tissue swelling. Electronically Signed: William Terrell, at 9:45 EST , Physical Exam Narrative alert, oriented x3, no apparent distress and healthy appearing General Appearance: cooperative, well kempt and well developed Orientation / Consciousness: awake, oriented to person, oriented to place and oriented to time HEENT normocephalic, head/scalp atraumatic and moist oral mucous membranes Eyes PERRL, EOMs intact bilaterally and conjunctivae normal Neck supple, no JVD, thyroid normal and no carotid bruits General: trachea midline Resp normal respiratory effort, no retractions, no use of accessory muscles and clear to auscultation bilaterally Auscultation: Negative for rales, rhonchi or wheezes Cardio regular rate, regular rhythm, S1 normal heart sound, S2 normal heart sound, no murmurs, no rub and no gallops GI normal to inspection, nondistended, normoactive bowel sounds, soft to palpation, non-tender and non-distended Extremity Extremity Narrative: Patient had bilateral surgical wraps on his feet from his amputation today, these were not removed for examination of the area Neuro oriented x3, CN's II-XII intact bilaterally, moves all extremities, no focal motor deficits and no sensory deficits noted Sensorium / Orientation: awake and alert Speech: speech normal Psych affect normal Assessment & Plan Assessment/Plan (1) Diabetes mellitus with diabetic polyneuropathy: PLAN: Plan 1. Gangrene to forefoot bilaterally with osteomyelitis-status post right and l eft forefoot amputation postop day 1-podiatry is providing surgical care for the patient, he will be seen in consultation by infectious diseases, patient was placed on meropenem and vancomycin. #2 type 2 diabetes-patient is not currently on any medications, blood sugar will be monitored, sliding scale insulin will be used if necessary, I have decided to place the patient on metformin 500 mg twice daily #3 neuropathy of the feet secondary to type 2 diabetes-complicates care, medical course, recovery, and prognosis #4 hypokalemia-patient was given supplemental potassium today #5 Severe protein and caloric malnutrition in the context of chronic disease related to inadequate oral intake and poor appetite as evidenced by a 24% weight loss over 1 year and p.o. meeting less than 50% of estimated nutritional needs over the past 6 months - 1-2 ounces extra meat protein q. meal as accepted by patient, Jerry twice daily for wound healing with meds is being given, continue 120 mL Ensure Plus high-protein 4 times a day with med Pass Patient will need at least short-term placement in the care home facility at time of discharge from the hospital. Total clinical time spent by myself addressing the patient's medical issues, reviewing all the data, and collaborating with patient's care team: 35-minutes Charges/Coding Visit Charges Inpatient E&M: 36099 Subs Hosp L2
[2022-12-30 15:10] VITALS: BP 103/72; PULSE 80; RESP 18; TEMP 36.5; O2SAT 95
[2022-12-30 16:55] LABS: Bedside Glucose 144 mg/dL (74-106)
[2022-12-30 20:36] VITALS: BP 106/69; PULSE 86; RESP 16; TEMP 37.1; O2SAT 95
[2022-12-30] MEDS: oxyCODONE 5 MG Tablet PO (21:51)
[2022-12-30] MEDS: Acetaminophen 325 MG Tablet 650 MG PO (21:52)
[2022-12-30] MEDS: Gabapentin 100 MG Capsule PO (21:52)
[2022-12-31 01:01] LABS: Bedside Glucose 151 mg/dL (74-106)
[2022-12-31 04:55] VITALS: BP 114/76; PULSE 70; RESP 16; TEMP 36.6; O2SAT 100
[2022-12-31 04:55] LABS: Vancomycin, Trough Level 17.3 ug/mL (5.0-15.0)
--- NOTE | 2022-12-31 05:11 | PCM.RX.CS ---
Consult Pharmacy has been consulted to manage selected antiobiotic: Vancomycin Type of Consult: Follow-up Suspected Infection: Osteomyelitis Prior Doses of Antibiotics Received/Current Regimen: Medications Vancomycin HCl 1,750 mg/ (Sodium Chloride) 535 mls @ 250 mls/hr IV Q12H KIRTI Last Admin: 12/30/22 19:26 Dose: Infused Labs: Sodium 136 mmol/L (136-145) 12/29/22 04:55 Potassium 3.2 mmol/L (3.5-5.1) L 12/29/22 04:55 Chloride 99 mmol/L (98-107) 12/29/22 04:55 Carbon Dioxide 30.0 mmol/L (21.0-32.0) 12/29/22 04:55 Anion Gap 7 (5-15) 12/29/22 04:55 BUN 7 mg/dL (7-18) 12/29/22 04:55 Creatinine 0.56 mg/dL (0.70-1.30) L 12/29/22 04:55 Est GFR (MDRD) Af Amer 191 mL/min (>60) 12/29/22 04:55 Est GFR (MDRD) Non-Af 158 mL/min (>60) 12/29/22 04:55 BUN/Creatinine Ratio 12.5 RATIO (10-20) 12/29/22 04:55 Glucose 114 mg/dL (74-106) H 12/29/22 04:55 Vancomycin Trough 17.3 ug/mL (5.0-15.0) H 12/31/22 04:17 Microbiology: Microbiology 12/28/22 18:32 Blood Culture (Wb) - Anticubital Right Blood Culture - Preliminary 12/28/22 18:15 Blood Culture (Wb) - Anticubital Left Blood Culture - Preliminary 12/29/22 Unknown Bone - Left Foot Gram Stain - Final 12/29/22 Unknown Bone - Left Foot Wound Culture - Preliminary 12/29/22 Unknown Tissue - Left Foot Gram Stain - Final 12/29/22 Unknown Tissue - Left Foot Wound Culture - Preliminary GNR non metal template maker 12/29/22 Unknown Bone - Right Foot Gram Stain - Final 12/29/22 Unknown Bone - Right Foot Wound Culture - Preliminary GNR non metal template maker GNR lactose metal template maker 12/29/22 Unknown Tissue - Right Foot Gram Stain - Final 02/14/23 Unknown Tissue - Right Foot Wound Culture - Preliminary GNR lactose metal template maker GNR non metal template maker Weight used for dosin kg Estimated Creatinine Clearance: >120 Goal Trough: 15-20 mcg/mL Pharmacy Plan for Drug Dosing: Vancomycin trough level of 17.3, drawn 11 hours post-dose, was within the target range of 15-20. Will continue dosing at 1750mg q12h, and re-draw a trough in two days. Pharmacy Service will continue to monitor and adjust dosing as required. Follow-Up Labs: Trough Vancomycin Labs to be done on [date and time ordered]: 01/02/23 @0434
[2022-12-31 06:45] LABS: Bedside Glucose 122 mg/dL (74-106)
--- NOTE | 2022-12-31 06:58 | PCM.PROGNOTE ---
Subjective Subjective Patient was seen this morning for follow up on feet. He is resting comfortably in bed, no new complaints. No fevers. Objective Data Objective Data Vital Signs: Vital Signs Temp Pulse Resp BP Pulse Ox O2 Del Method O2 Flow Rate 97.9 F 70 16 114/76 100 Room Air 2 12/31/22 04:55 12/31/22 04:55 12/31/22 04:55 12/31/22 04:55 12/31/22 04:55 12/31/22 04:55 12/29/22 16:15 Oxygen Flow Rate (L/min) 2 Oxygen Delivery Method Room Air Weight: 86 kg Body Mass Index (BMI) 27.6 Intake & Output: Intake and Output for Last 24 Hours 12/29/22 12/30/22 12/31/22 23:59 23:59 23:59 Intake Total 2457.0 / 2457.0 1613.5 / 1613.5 178.5 / 178.5 Output Total 950 / 1550 1250 / 1250 Balance 1507.0 / 907.0 363.5 / 363.5 178.5 / 178.5 Medical Nutrition Assessment Dietitian: Malnutrition Criteria Met Start: 12/29/22 14:00 Freq: Status: Active Protocol: Document 12/29/22 14:00 RMA (Rec: 12/29/22 14:00 RMA [id number]) Nutrition Malnutrition Evidence of Malnutrition Exists Yes Malnutrition (severe): Chronic Evidenced By Suboptimal Energy Intake ( Severe),Weight Loss (Severe) Intake Problem Increased Nutrient Needs (specify) Etiology for protein related to increased demands for wound healing Signs/Symptoms as evidenced by necrosis to all toes BL feet and pending surgery Status Active Problem Clinical Problem Chronic Disease or Condition Related Malnutrition Etiology Severe protein-calorie malnutrition in the context of chronic disease related to inadequate oral intake/poor appetite Signs/Symptoms as evidenced by 24% wt loss x 1 year and PO meeting less than 50% estimated nutrition needs x past 6 months Status Active Problem Recommendation Dietitian Recommendations/Changes Recommend advance diet as tolerated post-op to 2000 calorie/consistent carbohydrate; cardiac. Add 1-2 oz extra meat/protein Q meal as accepted by patient when advanced from NPO. Will add Jerry BID for wound healing with meds. Continue 120ml ensure plus high protein 4 times per day w / medpass. Adjust ONS as needed. Diet education as indicated prior to d/c. Lab / Micro Data Result Diagrams: 12/29/22 04:55 12/29/22 04:55 Labs: Laboratory Results - last 24 hr 12/30/22 12:15: POC Glucose 141 H 12/30/22 16:33: POC Glucose 144 H 12/30/22 21:42: POC Glucose 151 H 12/31/22 04:17: Vancomycin Trough 17.3 H 12/31/22 06:23: POC Glucose 122 H Micro: Microbiology 12/28/22 18:32 Blood Culture (Wb) - Anticubital Right Blood Culture - Preliminary 12/28/22 18:15 Blood Culture (Wb) - Anticubital Left Blood Culture - Preliminary 12/29/22 Unknown Bone - Left Foot Gram Stain - Final 12/29/22 Unknown Bone - Left Foot Wound Culture - Preliminary 12/29/22 Unknown Tissue - Left Foot Gram Stain - Final 12/29/22 Unknown Tissue - Left Foot Wound Culture - Preliminary GNR non utility arborist 12/29/22 Unknown Bone - Right Foot Gram Stain - Final 12/29/22 Unknown Bone - Right Foot Wound Culture - Preliminary GNR non utility arborist GNR lactose utility arborist 12/29/22 Unknown Tissue - Right Foot Gram Stain - Final 12/29/22 Unknown Tissue - Right Foot Wound Culture - Preliminary GNR lactose utility arborist GNR non utility arborist Radiography Diagnostic Testing: Radiology Impression Foot X-Ray 12/30/22 07:45 IMPRESSION: As above. Electronically Signed: Kin Maynard MD at 8:41 EST , Foot X-Ray 12/30/22 07:45 IMPRESSION: Postsurgical changes with diffuse soft tissue swelling. Electronically Signed: William Terrell at 9:45 EST , Physical Exam Const alert and no apparent distress Constitutional Narrative: Bilateral foot debridement to midfoot - deep tissues and bone exposed, tissues are healthy and viable, no maloder, no purulence, no visible abscess, on fluctuance, no crepitus present bilateral- clinically vascular status intact, no evidence of DVT bilateral. Wound vac intact to left foot. Extremity Extremity Narrative: Bilateral foot with significant gangrenous changes to the forefoot, there is significant maloder, there is purulent drainage, there is exposed bone, there is dog hair embedded into the wound and gangrene bilateral. Pedal pulses intact bilateral. There is some edema to the foot bilateral. Peripheral neurpoathy is present bilateral. There is contracture of knees bilateral. Assessment & Plan Assessment/Plan (1) Osteomyelitis: (2) History of type 2 diabetes mellitus: (3) Diabetes mellitus with diabetic polyneuropathy: PLAN: Plan Evaluation performed. s/p bilateral foot debridement - bleeding controlled, and tissues healthy and viable at this time. Wound vac left foot intact. Plan for right foot wound vac application tomorrow. Cultures have been obtained - Patient has been started on IV antibiotics - Vanc and Meropenem. ID has been consulted. No weightbearing bilateral foot. Podiatry will continue to follow patient.
[2022-12-31 07:40] VITALS: O2SAT 99
[2022-12-31 07:45] VITALS: BP 126/81; PULSE 72; RESP 18; TEMP 36.4; O2SAT 95
[2022-12-31] MEDS: Juven (unflavored) Packet 1 PACKET PO ×2 (08:40→16:57)
--- NOTE | 2022-12-31 09:38 | CASEMGMT ---
Social Work Updated clinicals sent to Nicolas Hernandez via [facility] and requested precert be started. SW met with pt and updated that Nicolas Hernandez has accepted pt and precert will be started. Pt agreeable to discharge plan. Plan: Nicolas Hernandez, pending precert CLAUDIA Lni
--- NOTE | 2022-12-31 10:22 | PCM.PN.ID ---
Physical Exam Narrative Feeling much better, neurontin helped pain a lot. No fever, no n/v/d. 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 Wound cx with GNR and proteus, pcr (+) mSSA. Taken to OR 12/29/[address] Goldberg for bilat TMA. Cont empiric vanc/zosyn. Will follow (3) Osteomyelitis:
[2022-12-31] MEDS: Ensure Plus High Protein 120 ML LIQUID PO ×3 (10:27→16:57)
[2022-12-31] MEDS: FLU VACC QS2022-23(6MOS UP)/PF 60 MCG/0.5 ML SYRINGE IM (10:28)
[2022-12-31 12:06] LABS: Bedside Glucose 102 mg/dL (74-106)
[2022-12-31 13:20] VITALS: BP 102/61; PULSE 102; RESP 18; TEMP 36.6; O2SAT 100
[2022-12-31] MEDS: oxyCODONE 5 MG Tablet PO (13:54)
[2022-12-31] MEDS: Acetaminophen 325 MG Tablet 650 MG PO (13:54)
[2022-12-31] MEDS: 0.9% Saline Lock 10 ML Syringe IV (13:57)
--- NOTE | 2022-12-31 14:30 | CASEMGMT ---
Social Work Precert has been obtained. Physician updated and pt is ready for discharge today. Nicolas Hernandez updated that pt will be coming today. SW notified pt and he is agreeable. Discharge to be arranged once physician orders are completed. CHER left with Gena at [facility] and updated on pt's discharge plan as she has been working with pt while in the community. CLAUDIA Wilhelm
--- NOTE | 2022-12-31 15:01 | WOUNDNOTE ---
Wound VAC removed from the left foot since patient is being [facility] to the [facility]. betadine moistened Adaptic applied and covered with dry dressings, ABD pad, and wrapped with kerlix. reapplied the IJEOMA wraps. pt tolerated well. had talked with nurse at [facility] about using a Y-connector and using just one VAC. Nurse states we haven't had a wound VAC in a while, can you remind me how the Y-connector works. explained the wound VAC dressing change with the nurse and how the Y-connector is used. nurse states she will discuss with the wound nurse at the [facility]. Pt aware he will be discharged to [facility] today.
--- NOTE | 2022-12-31 16:28 | PCM.TXEXTCAR ---
Diet Diet Order/Speech Therapy: 12/31/22 15:56 Diet: Consistent Carb - Calorie Controlled Is pt able to select menu?: Yes How many daily calories?: 2000 calorie Routine Orders/Code Status Routine Lab Work: - (Lipid profile in 1 week, fingerstick blood sugars fasting and 4 PM daily-notify attending if blood sugar less than 80 or higher than 180) Code Status: Full Code Wound(s) b/l feet: Wound Type: necrosis to all toes BL feet Dressing Change: dry dressing BILATERAL FEET: Wound Type: Surgical Incision left foot: Wound Type: open surgical wound s/p transmetatarsal amputation Dressing Change: applied KCI wound VAC right foot: Wound Type: open surgical wound s/p transmetatarsal amputation Dressing Change: betadine/Adaptic Therapies Weight Bearing: Non weight bearing Physical Therapy: Eval and Treat Occupational Therapy: Eval and Treat Problem/Diagnosis (1) Diabetes mellitus with diabetic polyneuropathy: Status: Acute Code(s): E11.42 - Type 2 diabetes mellitus with diabetic polyneuropathy (2) 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 Gangrene to forefoot bilaterally with osteomyelitis-status post right and left forefoot amputation postop day 1-podiatry is providing surgical care for the patient, he will be seen in consultation by infectious diseases, patient was placed on meropenem and vancomycin. #2 type 2 diabetes-patient is not currently on any medications, blood sugar will be monitored, sliding scale insulin will be used if necessary, I have decided to place the patient on metformin 500 mg twice daily #3 neuropathy of the feet secondary to type 2 diabetes-complicates care, medical course, recovery, and prognosis #4 hypokalemia-patient was given supplemental potassium today #5 Severe protein and caloric malnutrition in the context of chronic disease related to inadequate oral intake and poor appetite as evidenced by a 24% weight loss over 1 year and p.o. meeting less than 50% of estimated nutritional needs over the past 6 months - 1-2 ounces extra meat protein q. meal as accepted by patient, Jerry twice daily for wound healing with meds is being given, continue 120 mL Ensure Plus high-protein 4 times a day with med Pass Patient will need at least [facility]-term [facility] at time of discharge from the hospital. Total clinical time spent by myself addressing the patient's medical issues, reviewing all the data, and collaborating with patient's care team: 35-minutes Allergies/Procedures Done in Hospital Allergies Penicillins Allergy (Verified 12/28/22 18:03) Anaphylaxis Sulfa (Sulfonamide Antibiotics) Allergy (Verified 12/28/22 18:03) Rash Procedures: - (Left and right forefoot amputation) Type of Care/Length of Stay Estimated LOS: Convalescent Care Less Than 30 days Type of Care Needed: Skilled Rehab Potential: Good Prognosis: Good Additional Orders/Day of Discharge H&P will serve as current which was dated: 12/28/22 Day of Discharge: 12/31/22 Dietary and Speech Recommendations Dietitian Recommendations/Changes: Will change diet to 2000 calorie/consistent carbohydrate to manage blood sugars. Add 1-2 oz extra meat/protein Q meal as accepted by patient when advanced from NPO. Continue Jerry BID for wound healing with meds. Continue 120ml ensure plus high protein 4 times per day w/ medpass. Adjust ONS as needed. Discharge Plan Admission Admit Date/Time: 12/28/22 19:59 Primary Reason for Your Visit: Gangrene and osteomyelitis of the forefoot bilaterally Attending Provider: Refugio Agudelo Primary Care Provider: Macrina Murphy Consulting Providers: Brady Goldberg ; Stewart Greene ; Jaycob Belle Discharge Orders/Prescriptions Prescriptions: New acetaminophen [Tylenol] 325 mg Tablet 650 mg PO Q6H PRN PRN (Reason: Pain 1-10 Or Fever >100.7) Qty: 0 0RF Ensure Plus High Protein 0.08 gram-1.5 kcal/mL Liquid 120 ml PO 4X/DAY Qty: 0 0RF Jerry (with collagen) 7-7-1.5 gram Powder In Packet 1 packet PO BIDCM Qty: 0 0RF oxycodone 5 mg Tablet 5 mg PO Q4H PRN PRN (Reason: Pain Score 4-10) 3 Days Qty: 15 0RF levofloxacin 500 mg tablet 500 mg PO DAILY Qty: 7 0RF Rx Instructions: one daily for seven days starting 01/01/23 amoxicillin-pot clavulanate 875-125 mg tablet 1 tab PO BID Qty: 14 0RF Rx Instructions: start 01/01/23 - take with food gabapentin 300 mg capsule 300 mg PO QHS Qty: 1 0RF metformin 500 mg tablet 500 mg PO BID Qty: 1 0RF Referrals / Follow Up: Brady Goldberg DPM [Med Staff - Active Staff] - In 1 Week (call for appointment) Macrina Murphy MD [Primary Care Provider] - Disposition Disposition (needs filled in before D/C Order can be placed): Shelter Facility
--- NOTE | 2022-12-31 16:50 | DS.PCM_ITS ---
Providers Date of Admission: 12/28/22 Date of Discharge: 12/31/22 Primary Care Physician: Dr. Macrina Murphy MD Consultations 12/28/22 20:57 Consult: Podiatry Routine Consulting Provider: Brady Goldberg Reason for Consult: Bilateral foot necrosis EMERGENT Consult: Yes MD Notified: Yes Date Notified: 12/28/22 Time Notified: 20:02 Method of Notification: ED Physician Initiated 12/29/22 06:29 Consult: Onc/Wound/senior managing director Routine Comment: Reason for Consult:: bilateral feet 12/29/22 15:34 Consult: Infectious Disease Routine Consulting Provider: Jaycob Belle Reason for Consult: osteomyelitis, gangrene EMERGENT Consult: No MD Notified: Yes Date Notified: 12/29/22 Time Notified: 18:38 Method of Notification: via answering service Reason For Visit: BILATERAL NECROSIS/OSTEOMYELITIS OF FEET Diagnosis Discharge Diagnosis (1) Diabetes mellitus with diabetic polyneuropathy: Status: Acute Code(s): E11.42 - Type 2 diabetes mellitus with diabetic polyneuropathy (2) 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 Gangrene to forefoot bilaterally with osteomyelitis-status post right and left forefoot amputation postop day 1-podiatry is providing surgical care for the patient, he will be seen in consultation by infectious diseases, patient was placed on meropenem and vancomycin. #2 type 2 diabetes-patient is not currently on any medications, blood sugar will be monitored, sliding scale insulin will be used if necessary, I have decided to place the patient on metformin 500 mg twice daily #3 neuropathy of the feet secondary to type 2 diabetes-complicates care, medical course, recovery, and prognosis #4 hypokalemia-patient was given supplemental potassium today #5 Severe protein and caloric malnutrition in the context of chronic disease related to inadequate oral intake and poor appetite as evidenced by a 24% weight loss over 1 year and p.o. meeting less than 50% of estimated nutritional needs over the past 6 months - 1-2 ounces extra meat protein q. meal as accepted by patient, Jerry twice daily for wound healing with meds is being given, continue 120 mL Ensure Plus high-protein 4 times a day with med Pass #6 hyponatremia Sepsis was ruled out Patient will need at least short-term placement in the [facility] facility at time of discharge from the hospital. Total clinical time spent by myself addressing the patient's medical issues, reviewing all the data, and collaborating with patient's care team: 35-minutes Medications at Discharge Home Medications acetaminophen 325 mg tablet (Tylenol) 650 mg PO Q6H PRN PRN Pain 1-10 Or Fever >100.7 #0 tabs 12/31/22 amoxicillin 875 mg-potassium clavulanate 125 mg tablet 1 tab PO BID #14 tabs 12/31/22 arginine 7 gram-glutam 7 gram-CaHMB 1.5 [id number] oral pwd pkt (Jerry (with collagen)) 1 packet PO BIDCM #0 ea 12/31/22 food supplemt, lactose-reduced 0.08 gram-1.5 kcal/mL oral liquid (Ensure Plus High Protein) 120 ml PO 4X/DAY #0 mL 12/31/22 gabapentin 300 mg capsule 300 mg PO QHS #1 cap 12/31/22 levofloxacin 500 mg tablet 500 mg PO DAILY #7 tabs 12/31/22 metformin 500 mg tablet 500 mg PO BID #1 TAB 12/31/22 oxycodone 5 mg tablet 5 mg PO Q4H PRN PRN Pain Score 4-10 3 days #15 tabs 12/31/22 Hospital Course Operations None Procedures - (Right and left forefoot amputation) Summary of Care Provided Minutes Spent on Discharge: 32 Hospital Course: 62-year-old white male was seen in the emergency room at [facility] with complaints of nonhealing wounds on his anterior feet bilaterally, patient stated that several weeks previously he had frostbite. Patient realized he was unable to take care of himself and came to the emergency room for evaluation. Evaluation in the emergency room revealed both of his feet to be gangrenous over the distal area of both feet. Patient's labs showed a low potassium and low sodium. Admitting hospitalist reflected sepsis, this examiner did not feel the patient met sepsis criteria. Patient was admitted to [place] [id number], he was seen in consultation by the wound care nurse and podiatry, patient underwent a guillotine amputation of the distal areas of both feet, wound VAC was applied to one foot and he was seen by PT and OT. It was recommended the patient should go to an extended care facility for rehab services- the patient agreed. On 12/31/2022, patient was seen and examined:alert, oriented x3, no apparent distress and healthy appearing General Appearance: cooperative, well kempt and well developed Orientation / Consciousness: awake, oriented to person, oriented to place and oriented to time HEENT normocephalic, head/scalp atraumatic and moist oral mucous membranes Eyes PERRL, EOMs intact bilaterally and conjunctivae normal Neck supple, no JVD, thyroid normal and no carotid bruits General: trachea midline Resp normal respiratory effort, no retractions, no use of accessory muscles and clear to auscultation bilaterally Auscultation: Negative for rales, rhonchi or wheezes Cardio regular rate, regular rhythm, S1 normal heart sound, S2 normal heart sound, no murmurs, no rub and no gallops GI normal to inspection, nondistended, normoactive bowel sounds, soft to palpation, non-tender and non-distended Extremity Extremity Narrative: Patient had bilateral surgical wraps on his feet from his amputation today, these were not removed for examination of the area Neuro oriented x3, CN's II-XII intact bilaterally, moves all extremities, no focal motor deficits and no sensory deficits noted Sensorium / Orientation: awake and alert Speech: speech normal Psych affect normal On 12/31/2022, patient was seen and examined and felt to be in stable condition for transfer to an extended care facility for inpatient rehab services. Medical Records Data Medical Nutrition Assessment Dietitian: Malnutrition Criteria Met Start: 12/29/22 14:00 Freq: Status: Active Protocol: Document 12/29/22 14:00 RMA (Rec: 12/29/22 14:00 RMA [id number]) Nutrition Malnutrition Evidence of Malnutrition Exists Yes Malnutrition (severe): Chronic Evidenced By Suboptimal Energy Intake ( Severe),Weight Loss (Severe) Intake Problem Increased Nutrient Needs (specify) Etiology for protein related to increased demands for wound healing Signs/Symptoms as evidenced by necrosis to all toes BL feet and pending surgery Status Active Problem Clinical Problem Chronic Disease or Condition Related Malnutrition Etiology Severe protein-calorie malnutrition in the context of chronic disease related to inadequate oral intake/poor appetite Signs/Symptoms as evidenced by 24% wt loss x 1 year and PO meeting less than 50% estimated nutrition needs x past 6 months Status Active Problem Recommendation Dietitian Recommendations/Changes Recommend advance diet as tolerated post-op to 2000 calorie/consistent carbohydrate; cardiac. Add 1-2 oz extra meat/protein Q meal as accepted by patient when advanced from NPO. Will add Jerry BID for wound healing with meds. Continue 120ml ensure plus high protein 4 times per day w / medpass. Adjust ONS as needed. Diet education as indicated prior to d/c. Weight / BMI Weight Weight: 86 kg Body Mass Index (BMI) 27.6 ABG / Lab / Microbiology Data Result Diagrams: 12/29/22 04:55 12/29/22 04:55 Laboratory: Laboratory Results - last 24 hr 12/30/22 16:33: POC Glucose 144 H 12/30/22 21:42: POC Glucose 151 H 12/31/22 04:17: Vancomycin Trough 17.3 H 12/31/22 06:23: POC Glucose 122 H 12/31/22 11:45: POC Glucose 102 Microbiology: Microbiology 12/31/22 13:45 Nasal Secretion SARS-CoV-2 Antigen (Rapid) - Final 12/29/22 Unknown Bone - Right Foot Gram Stain - Final 12/29/22 Unknown Bone - Right Foot Wound Culture - Preliminary GNR lactose supervisor counseling and guidance Proteus vulgaris 12/29/22 Unknown Tissue - Right Foot Gram Stain - Final 12/29/22 Unknown Tissue - Right Foot Wound Culture - Preliminary Proteus vulgaris 12/29/22 Unknown Bone - Left Foot Gram Stain - Final 12/29/22 Unknown Bone - Left Foot Wound Culture - Preliminary GNR non supervisor counseling and guidance 12/29/22 Unknown Tissue - Left Foot Gram Stain - Final 12/29/22 Unknown Tissue - Left Foot Wound Culture - Preliminary Proteus vulgaris GNR lactose supervisor counseling and guidance 12/28/22 18:32 Blood Culture (Wb) - Anticubital Right Blood Culture - Preliminary 12/28/22 18:15 Blood Culture (Wb) - Anticubital Left Blood Culture - Preliminary Meaningful Use Info Meaningful Use Diagnoses (Choose all that apply): None applicable Discharge Plan Admission Admit Date/Time: 12/28/22 19:59 Primary Reason for Your Visit: Gangrene and osteomyelitis of the forefoot bi laterally Attending Provider: Refugio Agudelo Primary Care Provider: Macrina Murphy Consulting Providers: Brady Goldberg ; Stewart Greene ; Jaycob Belle Discharge Orders/Prescriptions Prescriptions: New acetaminophen [Tylenol] 325 mg Tablet 650 mg PO Q6H PRN PRN (Reason: Pain 1-10 Or Fever >100.7) Qty: 0 0RF Ensure Plus High Protein 0.08 gram-1.5 kcal/mL Liquid 120 ml PO 4X/DAY Qty: 0 0RF Jerry (with collagen) 7-7-1.5 gram Powder In Packet 1 packet PO BIDCM Qty: 0 0RF oxycodone 5 mg Tablet 5 mg PO Q4H PRN PRN (Reason: Pain Score 4-10) 3 Days Qty: 15 0RF levofloxacin 500 mg tablet 500 mg PO DAILY Qty: 7 0RF Rx Instructions: one daily for seven days starting 01/01/23 amoxicillin-pot clavulanate 875-125 mg tablet 1 tab PO BID Qty: 14 0RF Rx Instructions: start 01/01/23 - take with food gabapentin 300 mg capsule 300 mg PO QHS Qty: 1 0RF metformin 500 mg tablet 500 mg PO BID Qty: 1 0RF Referrals / Follow Up: Brady Goldberg DPM [Med Staff - Active Staff] - In 1 Week (call for appointment) Macrina Murphy MD [Primary Care Provider] - Disposition Disposition (needs filled in before D/C Order can be placed): [facility] Charges/Coding Visit Charges Inpatient E&M: 11875 Disch Hosp >30min
--- NOTE | 2022-12-31 17:02 | CM.ED ---
SW completed Hospital Exemption [id number] form. Copy printed off and put in chart. Lyly FONTANA
--- NOTE | 2022-12-31 17:15 | NURSING ---
Report called to [facility] [place] [phone].
[2022-12-31 17:31] LABS: Bedside Glucose 134 mg/dL (74-106)
[2022-12-31 20:06] VITALS: BP 104/69; PULSE 88; RESP 18; TEMP 36.8; O2SAT 94
[2022-12-31 21:30] LABS: Bedside Glucose 213 mg/dL (74-106)
== END 2022-12-31 21:05 | disposition skilled nursing facility (03) | DRG 239 ==
LOC: ED 19:46 → MS3 20:15
PROVIDERS: Anesthesiology; Podiatrist; Admitting Provider Family Medicine; Emergency Provider Emergency Medicine; PCP Internal Medicine; Visit Provider Internal Medicine
PROC: 0Y6M0Z9 Detachment at Right Foot, Partial 1st Ray, Open Approach (ICD-10-PCS; principal; 2022-12-29 13:00)
DX: E11.52 Type 2 diabetes mellitus with diabetic peripheral angiopathy with gangrene (principal); E43 Unspecified severe protein-calorie malnutrition; M86.171 Other acute osteomyelitis, right ankle and foot; E87.1 Hypo-osmolality and hyponatremia; M86.172 Other acute osteomyelitis, left ankle and foot; E11.42 Type 2 diabetes mellitus with diabetic polyneuropathy; L97.513 Non-pressure chronic ulcer of other part of right foot with necrosis of muscle; B95.2 Enterococcus as the cause of diseases classified elsewhere; E11.621 Type 2 diabetes mellitus with foot ulcer; L97.523 Non-pressure chronic ulcer of other part of left foot with necrosis of muscle; E11.69 Type 2 diabetes mellitus with other specified complication; E87.6 Hypokalemia; E78.00 Pure hypercholesterolemia, unspecified; F17.210 Nicotine dependence, cigarettes, uncomplicated; T34.821 Frostbite with tissue necrosis of right foot; T34.822D Frostbite with tissue necrosis of left foot, subsequent encounter; X31.XXXD Exposure to excessive natural cold, subsequent encounter; B95.61 Methicillin susceptible Staphylococcus aureus infection as the cause of diseases classified elsewhere; B96.4 Proteus (mirabilis) (morganii) as the cause of diseases classified elsewhere; B96.20 Unspecified Escherichia coli [E. coli] as the cause of diseases classified elsewhere; Z68.27 Body mass index [BMI] 27.0-27.9, adult; Z79.84 Long term (current) use of oral hypoglycemic drugs; Z79.891 Long term (current) use of opiate analgesic; Z79.899 Other long term (current) drug therapy; Z23 Encounter for immunization
CPT/HCPCS: 36415; 71045; 73630; 80048; 80053; 80202; 82962; 83036; 83605; 84484; 85025; 85652; 86140; 87015; 87040; 87070; 87075; 87077; 87102; 87116; 87176; 87186; 87205; 87206; 87426; 87640; 88305; 88311; 93005; 94640; 97162; 97166; 97530; 97535; 97802; 97803; 99285; 99406; G0008; J2185; J7030; J7040; J7050; J7120; 90686; A4216; J2405